=== PATIENT | female | born 2005 | race Caucasian/White ===

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

== ENCOUNTER 2023-05-21 16:51 | Emergency (ER) | payer OTHER, SELFPAY ==
--- OUTSIDE RECORDS SUMMARY | 2023-05-21 16:58 | XMS REPORT | Continuity of Care Document ---
:2005 Author Organization [facility] t Address [address] [place] [address] Care Team Providers Name Role Phone MADALYN EVANGELISTA Primary Care Physician Unavailable SEJAL REDD Attending Clinician Unavailable SEJAL REDD Attending Clinician Unavailable Hollis Arora MD Attending Clinician HOLLIS ARORA Attending Clinician Unavailable MADALYN EVANGELISTA Attending Clinician Unavailable LOUISE BENSON Attending Clinician Unavailable ASAEL CHEEMA Attending Clinician Unavailable Asael Cheema MD Attending Clinician Doctor Unassigned, Monette Attending Clinician Unavailable Louise Benson MD Attending Clinician JEVON MUELLER Attending Clinician Unavailable Jevon Mueller MD Attending Clinician BRANDI IRELAND Attending Clinician Unavailable SILVIA QUINN Attending Clinician Unavailable SILVIA QUINN Attending Clinician Unavailable Madalyn Le Attending Clinician Brandi Ireland MD Attending Clinician Lab, Ang - Db Attending Clinician Unavailable Roya Livingston MD Attending Clinician ROYA LIVINGSTON Attending Clinician Unavailable ROYA LIVINGSTON Admitting Clinician Unavailable BRANDI IRELAND Admitting Clinician Unavailable Payers Payer Name Policy Type Policy Number Effective Date Expiration Date Elvis agrawal DALTON [facility] [id number] 2022 STAR 00:00:00 Problems Condition Condition Condition Status Onset Resolution Last Treating Co mments Source Name Details Category Date Date Treatment Clinician Date Encounter Encounter Disease Active Uni vers for for 06 ity of surveill[place] ce of Medical contracept contracept Br anch priscilla pills priscilla pills ROSMERY ROSMERY Disease Active Univers positive positive 308 ity of 00:00: Medical Branch Anxiety Anxiety Disease Active Univers and and 308 [place] of depression depression [place] Lumbar Lumbar Disease Active Univers back pain back pain 2 ity of 00:00: [place] 00 Medical Branch Encounter Encounter Disease Active Uni vers to to 08-19 [place] establish [place] Syncope, Syncope, Disease Active 2021-06 Unive rs unspecifie unspecifie 0-24 it y of d syncope d [place]ope [place] type type 00 [place] Fatigue, Fatigue, Disease Active 2021-06 Unive rs unspecifie unspecifie 0-24 it y of d type d type 00:00: 00 Medical Branch No known No known Disease Unive rs active active ity of problems problems [facility] Allergies, Adverse Reactions, Alerts Allergy Allergy Status Severity Reaction(s) Onset Inactive Treating Comm ents Source Name Type Date Date Clinician Amoxicil Propensi Active Diarrhea Univ ers maksim ty to 03-18 ity of adverse 00:00: [place] reaction 00 Medical s Branch AMOXICIL DRUG Active Diarrhea Univer s MAKSIM INGREDI 9 ity of 00:00: 00 Medical Branch CITRUS Drug Active Hives Univers AND Class 2-27 ity of DERIVATI 00:00: [place] VES 00 Medical Branch [place] Propensi Active Rash Univers And ty to 2-27 ity of Derivati adverse 00:00: [place] ves reaction 00 Medical s Branch NO KNOWN Drug Active Univers ALLERGIE Class ity of S [facility] Social History Social Habit Start Date Stop Date Quantity Comments Source Gender identity Universit y of [facility] Sexual orientation Univer sity of [facility] Alcohol intake 2023-05-19 2023-05-19 Ex-drinker [facility] 00:00:00 00:00:00 (finding) [facility] Exposure to 2022-10-11 2022-10-21 Not sure [facility] SARS-CoV-2 (event) 00:00:00 15:08:00 [facility] History of Social 2022-08-28 2022-08-28 Univers ity of function 00:00:00 00:00:00 [facility] Tobacco use and 2022-08-19 2022-08-19 Smokeless Universit y of exposure 00:00:00 00:00:00 tobacco non-user [facility] dical [place] Alcohol Comment 2021-12-04 2021-12-04 social Universit y of 00:00:00 00:00:00 [facility] History SDAK 2020-08-22 2020-08-22 1 University o f Alcohol Frequency 00:00:00 00:00:00 [place] M edical Branch History SDOH 2020-08-22 2020-08-22 99 University o f Alcohol Std Drinks 00:00:00 00:00:00 [facility] History SDAK 2020-08-22 2020-08-22 1 University o f Alcohol Binge 00:00:00 00:00:00 [place] Medic al [place] Sex Assigned At [birth year] Universit y of 00:00:00 00:00:00 [facility] Smoking Status Start Date Stop Date Source Never smoked tobacco [facility] Medications Ordered Filled Start Stop Current Ordering Indication Dosage Frequency Signature Comments Components Source Medication Medication Date Date Medication? Clinician (SIG) Name Name cephALEXin 2022-06 Yes [id number] 500mg Take 1 Univers (KEFLEX) 1-27 capsule by ity o f 500 mg 00:00: mouth 4 [place] capsule 00 (four) Medical times Branch daily. neomycin-po Yes [id number] 3[drp] Place 3 Univers lymyxin-hyd 6-19 Drops in ity of rocortisone 00:00: right ear [place] 3.5-10,000- 00 4 (four) Medi juli 1 times Branch mg/mL-unit/ daily. mL-% otic susp neomycin-po 2023-0 Yes [id number] 3[drp] Place 3 Univers lymyxin-hyd 6-19 Drops in ity of rocortisone 00:00: right ear [place] 3.5-,000- 00 4 (four) Medi juli 1 times Branch mg/mL-unit/ daily. mL-% otic susp neomycin-po 2023-0 Yes [id number] 3[drp] Place 3 Univers lymyxin-hyd 6-19 Drops in ity of rocortisone 00:00: right ear [place] 3.5-,000- 00 4 (four) Medi juli 1 times Branch mg/mL-unit/ daily. mL-% otic susp neomycin-po 2023-0 Yes [id number] 3[drp] Place 3 Univers lymyxin-hyd 6-19 Drops in ity of rocortisone 00:00: right ear [place] 3.5-,000- 00 4 (four) Medi juli 1 times Branch mg/mL-unit/ daily. mL-% otic susp neomycin-po 2023-0 Yes [id number] 3[drp] Place 3 Univers lymyxin-hyd 6-19 Drops in ity of rocortisone 00:00: right ear [place] 3.5-- 00 4 (four) Medi juli 1 times Branch mg/mL-unit/ daily. mL-% otic susp neomycin-po 2023-0 Yes [id number] 3[drp] Place 3 Univers lymyxin-hyd 6-19 Drops in ity of rocortisone 00:00: right ear [place] 3.5-,000- 00 4 (four) Medi juli 1 times Branch mg/mL-unit/ daily. mL-% otic susp neomycin-po 2023-0 Yes [id number] 3[drp] Place 3 Univers lymyxin-hyd 6-19 Drops in ity of rocortisone 00:00: right ear [place] 3.5-,000- 00 4 (four) Medi juli 1 times Branch mg/mL-unit/ daily. mL-% otic susp neomycin-po 2023-0 Yes [id number] 3[drp] Place 3 Univers lymyxin-hyd 6-19 Drops in ity of rocortisone 00:00: right ear [place] 3.5-10,000- 00 4 (four) Medi juli 1 times Branch mg/mL-unit/ daily. mL-% otic susp neomycin-po 3-0 Yes [id number] 3[drp] Place 3 Univers lymyxin-hyd 6-19 Drops in ity of rocortisone 00:00: right [place] 3.5-10,000- 00 4 (four) Medi juli 1 times Branch mg/mL-unit/ daily. mL-% otic susp neomycin-po 3-0 Yes [id number] 3[drp] Place 3 Univers lymyxin-hyd 6-19 Drops in ity of rocortisone 00:00: right [place] 3.5-,000- 00 4 (four) Medi juli 1 times Branch mg/mL-unit/ daily. mL-% otic susp naproxen 2022-0 3- No [id number] 500mg Take 1 Univers 500 mg 6-19 06-30 tablet by ity of tablet 00:00: 04:59 mouth in [place] 00 :00 the Medical morning Branch and 1 tablet in the evening. Take with meals. Do all this for 10 days. levonorgest 3-0 Yes [id number] 1{tbl} Take 1 Univers rel-ethinyl 6-06 tablet by [place]y of estradiol 00:00: [place] 0.[place] mg-30 the Medical mcg () morning. Branch per tablet levonorgest 2023-0 Yes [id number] 1{tbl} Take 1 Univers rel-ethinyl 6-06 tablet by ity of estradiol 00:00: [place] 0.[place] mg-30 the Medical mcg () morning. Branch per tablet levonorgest 2023-0 Yes [id number] 1{tbl} Take 1 Univers rel-ethinyl 6-06 tablet by [place]y of estradiol 00:00: [place] 0.[place] mg-30 the Medical mcg () morning. Branch per tablet levonorgest 2023-0 Yes [id number] 1{tbl} Take 1 Univers rel-ethinyl 6-06 tablet by ity of estradiol 00:00: [place] 0.[place] mg-30 the Medical mcg () morning. Branch per tablet levonorgest 2023-0 Yes [id number] 1{tbl} Take 1 Univers rel-ethinyl 6-06 tablet by [place]y of estradiol 00:00: [place] 0.15 mg-30 the Medical mcg () morning. Branch per tablet levonorgest 3-0 Yes [id number] 1{tbl} Take 1 Univers rel-ethinyl 6-06 tablet by ity of estradiol 00:00: [place] 0.[place] mg-30 the Medical mcg () morning. Branch per tablet levonorgest 3-0 Yes [id number] 1{tbl} Take 1 Univers rel-ethinyl 6-06 tablet by ity of estradiol 00:00: [place] 0.15 mg- the Medical mcg () morning. Branch per tablet levonorgest 3-0 Yes [id number] 1{tbl} Take 1 Univers rel-ethinyl 6-06 tablet by ity of estradiol 00:00: [place] 0.15 mg- the Medical mcg () morning. Branch per tablet levonorgest 3-0 Yes [id number] 1{tbl} Take 1 Univers rel-ethinyl 6-06 tablet by ity of estradiol 00:00: [place] 0.15 mg- the Medical mcg () morning. Branch per tablet levonorgest 3-0 Yes [id number] 1{tbl} Take 1 Univers rel-ethinyl 6-06 tablet by ity of estradiol 00:00: [place] 0.15 mg- the Medical mcg () morning. Branch per tablet levonorgest 3-0 Yes [id number] 1{tbl} Take 1 Univers rel-ethinyl 6-06 tablet by ity of estradiol 00:00: [place] 0.[place] mg-30 the Medical mcg () morning. Branch per tablet levonorgest 2023-0 Yes [id number] 1{tbl} Take 1 Univers rel-ethinyl 6-06 tablet by ity of estradiol 00:00: [place] 0.[place] mg-30 00 the Medical mcg () morning. Branch per tablet levonorgest 2023-0 Yes [id number] 1{tbl} Take 1 Univers rel-ethinyl 6-06 tablet by ity of estradiol 00:00: [place] 0.[place] mg-30 00 the Medical mcg (91) morning. Branch per tablet levonorgest Yes [id number] 1{tbl} Take 1 Univers rel-ethinyl 6-06 tablet by ity of estradiol 00:00: [place] 0.[place] mg-30 00 the Medical mcg (91) morning. Branch per tablet levonorgest 2022- Yes [id number] 1{tbl} Take 1 Univers rel-ethinyl 3-09 tablet by ity of estradiol 00:00: [place] 0.[place] mg-30 00 the Medical mcg (91) morning. Branch per tablet levonorgest Yes [id number] 1{tbl} Take 1 Univers rel-ethinyl 3-09 tablet by ity of estradiol 00:00: [place] 0.[place] mg-30 00 the Medical mcg (91) morning. Branch per tablet levonorgest Yes [id number] 1{tbl} Take 1 Univers rel-ethinyl 3-09 tablet by ity of estradiol 00:00: [place] 0.[place] mg-30 00 the Medical mcg (91) morning. Branch per tablet levonorgest Yes [id number] 1{tbl} Take 1 Univers rel-ethinyl 3-09 tablet by ity of estradiol 00:00: [place] 0[place] mg-30 00 the Medical mcg (91) morning. Branch per tablet levonorgest 2022- No [id number] 1{tbl} Take 1 Univers rel-ethinyl 3-09 06-06 tablet by it y of estradiol 00:00: 00:00 mouth in [place] 0.15 mg-30 00 :00 the Medical mcg (91) morning. Branch per tablet levonorgest 2022- No [id number] 1{tbl} Take 1 Univers rel-ethinyl 3-09 06-06 tablet by it y of estradiol 00:00: 00:00 mouth in [place] 0.15 mg-30 00 :00 the Medical mcg (91) morning. Branch per tablet meclizine 32mg Take 32 mg U nivers 25 mg 8-08 02-19 by mouth 3 ity of tablet 09:54: 00:00 (three) [place] 01 :00 times Medical daily as Branch needed. meclizine 32mg Take 32 mg U nivers 25 mg 8-19 -19 by mouth 3 ity of tablet 09:54: 00:00 (three) [place] 01 :00 times Medical daily as Branch needed. levonorgest Yes [id number] 1{tbl} Take 1 Univers rel-ethinyl 8-19 tablet by ity of estradiol 00:00: [place] 0.[place] mg-30 00 the Medical mcg () morning. Branch per tablet levonorgest Yes [id number] 1{tbl} Take 1 Univers rel-ethinyl 8-19 tablet by ity of estradiol 00:00: [place] 0.[place] mg-30 00 the Medical mcg () morning. Branch per tablet levonorgest Yes [id number] 1{tbl} Take 1 Univers rel-ethinyl 8-19 tablet by ity of estradiol 00:00: [place] 0.[place] mg-30 00 the Medical mcg () morning. Branch per tablet levonorgest Yes [id number] 1{tbl} Take 1 Univers rel-ethinyl 8-19 tablet by ity of estradiol 00:00: [place] 0.[place] mg-30 00 the Medical mcg (91) morning. Branch per tablet levonorgest Yes [id number] 1{tbl} Take 1 Univers rel-ethinyl 8-19 tablet by ity of estradiol 00:00: [place] 0.[place] mg-30 00 the Medical mcg (91) morning. Branch per tablet levonorgest Yes [id number] 1{tbl} Take 1 Univers rel-ethinyl 8-19 tablet by ity of estradiol 00:00: [place] 0.[place] mg-30 00 the Medical mcg (91) morning. Branch per tablet levonorgest Yes [id number] 1{tbl} Take 1 Univers rel-ethinyl 8-19 tablet by ity of estradiol 00:00: [place] 0.[place] mg-30 00 the Medical mcg (91) morning. Branch per tablet levonorgest 2021-0 Yes [id number] 1{tbl} Take 1 Univers rel-ethinyl 8-19 tablet by ity of estradiol 00:00: [place] 0.[place] mg-30 00 the Medical mcg (91) morning. Branch per tablet levonorgest 2021-0 Yes [id number] 1{tbl} Take 1 Univers rel-ethinyl 8-19 tablet by ity of estradiol 00:00: [place] 0.[place] mg-30 00 the Medical mcg (91) morning. Branch per tablet levonorgest 2021-0 Yes [id number] 1{tbl} Take 1 Univers rel-ethinyl 8-19 tablet by ity of estradiol 00:00: [place] 0.[place] mg-30 00 the Medical mcg (91) morning. Branch per tablet levonorgest 2021-0 Yes [id number] 1{tbl} Take 1 Univers rel-ethinyl 8-19 tablet by ity of estradiol 00:00: [place] 0.[place] mg-30 00 the Medical mcg (91) morning. Branch per tablet levonorgest 2021-0 Yes [id number] 1{tbl} Take 1 Univers rel-ethinyl 8-19 tablet by ity of estradiol 00:00: [place] 0[place] mg-30 00 the Medical mcg (91) morning. Branch per tablet levonorgest 2021-0 Yes [id number] 1{tbl} Take 1 Univers rel-ethinyl 8-19 tablet by ity of estradiol 00:00: [place] 0.[place] mg-30 00 the Medical mcg (91) morning. Branch per tablet levonorgest 2021-0 Yes [id number] 1{tbl} Take 1 Univers rel-ethinyl 8-19 tablet by ity of estradiol 00:00: [place] 0[place] mg-30 00 the Medical mcg (91) morning. Branch per tablet levonorgest 2-0 Yes [id number] 1{tbl} Take 1 Univers rel-ethinyl 8-19 tablet by ity of estradiol 00:00: [place] 0.[place] mg-30 00 the Medical mcg () morning. Branch per tablet levonorgest Yes [id number] 1{tbl} Take 1 Univers rel-ethinyl 8-19 tablet by ity of estradiol 00:00: [place] 0.[place] mg-30 00 the Medical mcg () morning. Branch per tablet levonorgest Yes [id number] 1{tbl} Take 1 Univers rel-ethinyl 8-19 tablet by ity of estradiol 00:00: [place] 0.15 mg-30 00 the Medical mcg () morning. Branch per tablet levonorgest Yes [id number] 1{tbl} Take 1 Univers rel-ethinyl 8-19 tablet by ity of estradiol 00:00: [place] 0.15 mg-30 00 the Medical mcg () morning. Branch per tablet levonorgest Yes [id number] 1{tbl} Take 1 Univers rel-ethinyl 8-19 tablet by ity of estradiol 00:00: [place] 0.15 mg-30 00 the Medical mcg () morning. Branch per tablet levonorgest Yes [id number] 1{tbl} Take 1 Univers rel-ethinyl 8-19 tablet by ity of estradiol 00:00: [place] 0.15 mg-30 00 the Medical mcg () morning. Branch per tablet levonorgest 2022- No [id number] 1{tbl} Take 1 Univers rel-ethinyl 8-19 03-09 tablet by it y of estradiol 00:00: 00:00 mouth in [place] 0.15 mg-30 00 :00 the Medical mcg (91) morning. Branch per tablet desogestreL 2021- No [id number] 1{tbl} Take 1 Univers -ethinyl 6-14 08-19 tablet by ity o f estradioL 00:00: 00:00 mouth [place] (RECLIPSEN, 00 :00 daily. Medica l 28,) Branch 0.15-0.03 mg per tablet desogestreL 2021- No [id number] 1{tbl} Take 1 Univers -ethinyl 6-14 08-19 tablet by ity o f estradioL 00:00: 00:00 mouth [place] (RECLIPSEN, 00 :00 daily. Medica l 28,) Branch 0.15-0.03 mg per tablet QUEtiapine 2021- No Univer s 300 mg 08-01 ity of tablet 00:00: 00:00 [place] 00 :00 Medical Branch QUEtiapine 2021- No Univer s 300 mg 08-01 ity of tablet 00:00: 00:00 [place] 00 :00 Medical Branch DENTA 5000 2021- No Univer s PLUS 1.1 % 07-28 ity of Crea 00:00: 00:00 [place] 00 :00 Medical Branch DENTA 5000 2021- No Univer s PLUS 1.1 % 07-28 ity of Crea 00:00: 00:00 [place] 00 :00 Medical Branch venlafaxine 2021- No Unive rs XR 75 mg 24 07-18 ity of hr capsule 00:00: 00:00 [place] 00 :00 Medical Branch venlafaxine 2021- No Unive rs XR 75 mg 24 07-18 ity of hr capsule 00:00: 00:00 [place] 00 :00 [facility] Immunizations Ordered Filled Date Status Comments Source Immunization Name Immunization Name [facility] 2022-11-26 Completed University of 00:00:00 [facility] HPV9 2022-11-26 Completed University of 00:00:00 [facility] HPV9 2022-11-26 Completed University of 00:00:00 [facility] HPV9 2022-11-26 Completed University of 00:00:00 [facility] HPV9 2022-11-26 Completed University of 00:00:00 [facility] HPV9 2022-11-26 Completed University of 00:00:00 [facility] HPV9 2022-11-26 Completed University of 00:00:00 [facility] HPV9 2022-11-26 Completed University of 00:00:00 [facility] HPV9 Unknown Completed [facility] HPV9 Unknown Completed [facility] HPV9 Unknown Completed [facility] HPV9 Unknown Completed [facility] HPV9 Unknown Completed [facility] HPV9 Unknown Completed [facility] Vital Signs Vital Name Observation Time Observation Value Comments Source Systolic blood 2023-05-20 05:49:00 99 mm[Hg] Univer sity of pressure [facility] Diastolic blood 2023-05-20 05:49:00 59 mm[Hg] Unive rsity of pressure [facility] Heart rate 2023-05-20 05:49:00 79 /min Universi ty of [facility] Respiratory rate 2023-05-20 05:49:00 16 /min Univ ersity of [facility] Oxygen saturation in 2023-05-20 05:49:00 100 /min University of Arterial blood by [place] [employer] Pulse oximetry Branch Body temperature 2023-05-20 02:52:00 37.11 Ysabel Univ ersity of [facility] Body height 2023-05-20 02:52:00 167.6 cm Universi ty of [facility] Body weight 2023-05-20 02:52:00 57.607 kg Universi ty of [place] [facility] BMI 2023-05-20 02:52:00 20.50 kg/m2 Universi ty of [facility] [place] [facility] Branch Systolic blood 2023-04-11 14:52:00 101 mm[Hg] Univer sity of pressure [facility] Branch Diastolic blood 2023-04-11 14:52:00 68 mm[Hg] Unive rsity of pressure [facility] Heart rate 2023-04-11 14:52:00 56 /min Universi ty of [facility] Body temperature 2023-04-11 14:52:00 36.56 Ysabel Univ ersity of [facility] Respiratory rate 2023-04-11 14:52:00 18 /min Univ ersity of [facility] Body height 2023-04-11 14:52:00 165.1 cm Universi ty of [place] [facility] Body weight 2023-04-11 14:52:00 59.194 kg Universi ty of [place] [facility] BMI 2023-04-11 14:52:00 21.72 kg/m2 Universi ty of [facility] Oxygen saturation in 2023-04-11 14:52:00 98 /min r/a University of Arterial blood by [place] Pulse oximetry Branch Body height 2023-03-18 14:45:00 165.1 cm Universi ty of [place] [facility] Body weight 2023-03-18 14:45:00 60.357 kg Universi ty of [place] [facility] BMI 2023-03-18 14:45:00 22.14 kg/m2 Universi ty of [facility] [place] [facility] Branch Systolic blood 2023-01-03 20:16:00 103 mm[Hg] Univer sity of pressure [place] [facility] [place] Diastolic blood 2023-01-03 20:16:00 64 mm[Hg] Unive rsity of pressure [facility] Heart rate 2023-01-03 20:16:00 98 /min Universi ty of [place] [facility] [place] Body height 2023-01-03 20:10:00 165.1 cm Universi ty of [place] [facility] [place] Body weight 2023-01-03 20:10:00 58.106 kg Universi ty of [place] [facility] [place] BMI 2023-01-03 20:10:00 21.32 kg/m2 Universi ty of [facility] Systolic blood 2022-12-10 00:43:00 123 mm[Hg] Univer sity of [facility] Diastolic blood 2022-12-10 00:43:00 81 mm[Hg] Unive rsity of [facility] Heart rate 2022-12-10 00:43:00 71 /min Universi ty of [place] [facility] [place] Body temperature 2022-12-10 00:43:00 37.11 Ysabel Univ ersity of [facility] Respiratory rate 2022-12-10 00:43:00 18 /min Univ ersity of [facility] Body height 2022-12-10 00:43:00 165.1 cm Universi ty of [place] [facility] [place] Body weight 2022-12-10 00:43:00 57.607 kg Universi ty of [place] [facility] BMI 2022-12-10 00:43:00 21.13 kg/m2 Universi ty of [facility] Oxygen saturation in 2022-12-10 00:43:00 100 /min [facility] Arterial blood by [facility] Pulse oximetry Branch Systolic blood 2022-11-26 20:30:00 93 mm[Hg] Univer sity of pressure [facility] Diastolic blood 2022-11-26 20:30:00 43 mm[Hg] Unive rsity of pressure [facility] Heart rate 2022-11-26 20:30:00 64 /min Universi ty of [place] [facility] [place] Body temperature 2022-11-26 20:30:00 36.78 Ysabel Univ ersity of [facility] Respiratory rate 2022-11-26 20:30:00 18 /min Univ ersity of [place] [facility] [place] Body height 2022-11-26 20:30:00 163 cm Universi ty of [place] [facility] [place] Body weight 2022-11-26 20:30:00 57.879 kg Universi ty of [place] [facility] BMI 2022-11-26 20:30:00 21.78 kg/m2 Universi ty of [facility] Systolic blood 2022-10-21 20:12:00 122 mm[Hg] Univer sity of pressure [facility] Diastolic blood 2022-10-21 20:12:00 63 mm[Hg] Unive rsity of pressure [facility] Body height 2022-10-21 20:12:00 167.6 cm Universi ty of [place] [facility] [place] Body weight 2022-10-21 20:12:00 57.108 kg Universi ty of [place] [facility] BMI 2022-10-21 20:12:00 20.32 kg/m2 Universi ty of [facility] [place] [facility] Branch Systolic blood 2022-08-28 16:18:00 115 mm[Hg] Univer sity of pressure [facility] Diastolic blood 2022-08-28 16:18:00 60 mm[Hg] Unive rsity of pressure [facility] Heart rate 2022-08-28 16:18:00 79 /min Universi ty of [place] [facility] [place] Body temperature 2022-08-28 16:18:00 37.22 Ysabel Univ ersity of [facility] Body height 2022-08-28 16:18:00 167.6 cm Universi ty of [place] [facility] Body weight 2022-08-28 16:18:00 56.7 kg Universi ty of [place] [facility] BMI 2022-08-28 16:18:00 20.18 kg/m2 Universi ty of [facility] Body mass index 2022-08-28 16:18:00 31.77 % Unive rsity of (BMI) [Percentile] [facility] ical Per age and sex Branch Oxygen saturation in 2022-08-28 16:18:00 99 /min University of Arterial blood by [facility] Pulse oximetry Branch Systolic blood 2022-08-19 15:06:00 108 mm[Hg] Univer sity of pressure [facility] Diastolic blood 2022-08-19 15:06:00 70 mm[Hg] Unive rsity of pressure [facility] Heart rate 2022-08-19 15:06:00 83 /min Universi ty of [facility] Body temperature 2022-08-19 15:06:00 37.17 Ysabel Univ ersity of [facility] Body height 2022-08-19 15:06:00 167.6 cm Universi ty of [facility] Body weight 2022-08-19 15:06:00 58.015 kg Universi ty of [facility] BMI 2022-08-19 15:06:00 20.64 kg/m2 Universi ty [facility] Body mass index 2022-08-19 15:06:00 38.20 % Unive rsity of (BMI) [Percentile] [place] [facility] ical Per age and sex Branch Oxygen saturation in 2022-08-19 15:06:00 98 /min [facility] Arterial blood by [facility] Pulse oximetry Branch Systolic blood 2022-02-08 14:12:00 101 mm[Hg] Univer sity of pressure [facility] Diastolic blood 2022-02-08 14:12:00 67 mm[Hg] Unive rsity of pressure [facility] Heart rate 2022-02-08 14:12:00 81 /min Universi ty [facility] Body temperature 2022-02-08 14:12:00 36.78 Ysabel Univ ersity of [facility] Body height 2022-02-08 14:12:00 167.6 cm Universi ty [facility] Body weight 2022-02-08 14:12:00 59.512 kg Universi ty [facility] BMI 2022-02-08 14:12:00 21.18 kg/m2 Universi ty [facility] Body mass index 2022-02-08 14:12:00 47.21 % Unive rsity of (BMI) [Percentile] [place] Med ical Per age and sex Branch Procedures Procedure Date / Time Performing Clinician Source Performed TROPONIN I 2023-05-20 04:01:00 Hollis Arora [facility] COMP. METABOLIC PANEL 2023-05-20 04:01:00 Hollis Arora [facility] ([id number]) Medical Branch CBC WITH DIFF 2023-05-20 04:01:00 Hollis Arora [facility] URINALYSIS 2023-05-20 04:01:00 Hollis Arora [facility] RAPID STREP SCREEN FOR 2023-05-20 04:01:00 Hollis Arora [facility] GROUP A [facility] RAPID INFLUENZA A/B 2023-05-20 04:01:00 Hollis Arora [facility] POCT TEST 2023-05-20 04:01:00 Hollis [facility]ora [facility] CONSENT/REFUSAL FOR 2023-05-20 02:29:15 Doctor Jimmy, [facility] STATEMENT OF PATIENT 2023-04-11 05:01:00 Doctor Jimmy, [facility] FINANCIAL RESPONSIBILITY [facility] CONSENT/REFUSAL FOR 2023-01-03 20:03:41 Doctor Jimmy, [facility] DIAGNOSIS AND TREATMENT [facility] ASSIGNMENT OF BENEFITS 2022-12-10 01:08:19 Doctor Jimmy, [facility] CONSENT/REFUSAL FOR 2022-12-10 00:35:59 [facility] DI[facility] GARDASIL 9 (HPV 9V) 2022-11-26 20:55:19 Horace [facility] VACCINE Sejal [facility] CONSENT FOR CONTRACEPTION 2022-11-26 05:01:00 Doctor Jimmy, [facility] [place] [facility] POCT TEST 2022-08-19 16:30:00 Madalyn Evangelista [facility] CORTISOL AM 2022-03-25 15:37:00 Silvia Quinn [facility] FREE T4 2022-03-25 15:37:00 Silvia Quinn [facility] THYROID STIMULATING 2022-03-25 15:37:00 Silvia Quinn [facility] HORMONE [facility] Branch COMP. METABOLIC PANEL 2022-03-25 15:37:00 Silvia Quinn [facility] ([id number]) Medical Branch CBC WITH DIFF 2022-03-25 15:37:00 [facility] GLYCOSYLATED HEMOGLOBIN 2022-03-25 15:37:00 Silvia Quinn [facility] (A1C) [facility] FREE T3 2022-03-25 15:37:00 Silvia Quinn [facility] US PELVIS COMPLETE WITH 2022-02-20 19:31:10 Brandi Ireland [facility] Start End Encounter Admission Attending Care Care Encounter Source Date/Time Date/Time Type Type Clinicians Facility Department ID 2023-05-19 2023-05-19 Emergency [facility] [id number] Univers 20:55:00 23:51:00 Hollis GUTIÉRREZ 350.1.13.10 ity [facility] [place].2.[place].2.[place] [phone] [place] [address] Branch 2023-05-19 2023-05-19 Emergency [facility] [id number] Univers 20:55:00 23:51:00 HOLLIS y [facility] 2023-04-23 2023-04-23 Outpatient R JEAN CARLOS [facility] [id number] Univers 13:30:00 13:30:00 MADALYN y [facility] 2023-04-11 2023-04-11 Outpatient R [facility] [id number] Univers 12:15:00 12:15:00 ity [facility] 2023-04-11 2023-04-11 Outpatient R DENI [facility] [id number] Univers 10:00:00 11:23:53 ASAEL contrerasy [facility] 2023-04-11 2023-04-11 [facility] 1.2.840.114 [id number] Univers 10:00:00 11:23:53 Visit Asael SMITH 350.1.13.10 it y of [facility] 4.2.7.2.686 [place] [phone] [address] 2023-04-11 2023-04-11 Orders Doctor MARILIN 1.2.840.114 [id number] Univers 00:00:00 00:00:00 Only Unassigned, FRANCO 350.1.13.10 ity of [place] [facility] 4.2.7.2.686 Horacio as [phone] [address] 2023-03-18 2023-03-18 Office [facility] [id number] Univers 10:00:00 10:15:00 Visit Louise GUARDADO 350.1.13.10 i ty of [facility] 4[place].2.[place] [id number] [address] 2023-03-18 2023-03-18 [facility] [id number] Univers 10:00:00 10:00:00 LOUISE torres [facility] 2023-01-03 2023-01-03 Office [facility] [id number] Univers 15:45:00 16:00:00 Visit Louise GUARDADO 350.1.13.10 i ty of [facility] [place].2.[place] [id number] [address] 2023-01-03 2023-01-03 Out[facility] [id number] Univers 15:45:00 15:45:00 LOUISE torres [facility] 2023-01-03 2023-01-03 Orders Doctor GASTON 1.2.840.114 [id number] Univers 00:00:00 00:00:00 Only Unassigned, FRANCO 350.1.13.10 ity of [place] [facility] 4.2.7.2.686 Horacio as [phone] [address] 2022-12-09 2022-12-09 Emergency [facility] [id number] Univers 19:46:00 20:22:00 JEVON benrosalind [facility] 2022-12-09 2022-12-09 Emergency [facility] 1.2.540.488 [id number] Univers 19:46:00 20:22:00 Jevon GUTIÉRREZ 350.1.13.10 i ty of [place] 4.2.7.2.[place] [phone] [facility] [address] [place] 2022-12-09 2022-12-09 Orders Doctor MARILIN 1.2.840.114 [id number] Univers 00:00:00 00:00:00 Only Unassigned, FRANCO 350.1.13.10 ity of [place] [facility] 4.2.7.2.686 Horacio as [id number] [address] 2022-11-26 2022-11-26 Outpatient R HORACE SEJAL [facility] [id number] Univers 15:30:00 15:58:32 HORACE [facility] 2022-11-26 2022-11-26 Office [facility] 1.2.840.114 [id number] Univers 15:30:00 15:58:32 Visit s, Sejal [place] 350.1.13.10 ity [facility] 4.2.7.2.[place] [phone] La dical [facility] [address] [facility] 2022-11-26 2022-11-26 Orders Doctor MARILIN 1.2.840.114 [id number] Univers 00:00:00 00:00:00 Only Unassigned, FRANCO 350.1.13.10 ity of [place] [facility] 4.2.7.2.686 Horacio as [phone] [address] 2022-10-21 2022-10-21 Outpatient R SILVIA QUINN [facility] [id number] Univers 15:30:00 15:48:47 SILVIA [facility]INN [facility] 2022-10-21 2022-10-21 Office Sakshi [facility] 1.2.840.114 [id number] Univers 15:30:00 15:48:47 Visit HEALTH 350.1.13.10 it y of [place] 4.2.7.2.686 Horacio as LIAN?BLEA [phone] La dical KNEY [address] MEDICAL OFFICE BUILDING 2022-09-01 2022-09-01 Patient Doctor MARILIN 1.2.840.114 [id number] Univers 00:00:00 00:00:00 Secure Msg Unassigned, FRANCO 350.1.13.10 ity of [facility] 4.2.7.2.686 Horacio as [phone] [address] 2022-08-28 2022-08-28 Outpatient R JEAN CARLOS [facility] [id number] Univers 10:30:00 10:53:44 MADALYN torres [facility] 2022-08-28 2022-08-28 Office [facility] 1.2.840.114 [id number] Univers 10:30:00 10:53:44 Visit Madalyn [facility] 350.1.13.10 it y of [facility] 4.2.7.2.686 Horacio as LIAN?BLEA [phone] La dicbonifacio [facility] [address] [facility] OFFICE [facility] 2022-08-28 2022-08-28 Ref[facility] 1.2.840.114 [id number] Univers 00:00:00 00:00:00 Brandi Mcallister [facility] 350.1.13.10 ity of [place] 4[place].2.[place] [phone] [facility] 134 [facility] 2022-08-19 2022-08-19 Outpatient R SAIDAErik [facility] [id number] Univers 10:00:00 10:38:59 MADALYN torres [facility] 2022-08-19 2022-08-19 Immigration Lawyer Lab, Ang - Db [facility] 1.2.840.1 14 [id number] Univers 10:00:00 10:15:00 Visit Jean Carlos Madalyn [facility] 350.1.13.10 ity of [facility] 4.2.7.2.686 Horacio as LIAN?BLEA [phone] La dical HENRIQUE [address] [facility] OFFICE BUILDING 2022-08-19 2022-08-19 Office Jean [facility] 1.2.840.114 [id number] Univers 09:00:00 09:30:00 Visit Madalyn PALACIOS 350.1.13.10 it y of [facility] 4.2.7.2.686 Horacio as LIAN?BLEA [phone] La dical EY [address] MEDICAL OFFICE BUILDING 2022-06-26 2022-06-26 Outpatient R SILVIA QUINN [facility] [id number] Univers 11:30:00 11:30:00 SILVIA QUINN itrosalind [facility] 2022-04-23 2022-04-23 Telephone Silvia Quinn [facility] [id number] Univers 00:00:00 00:00:00 PRIMARY 350.1.13.10 it y of [place] [phone] [facility] [address] [place] 2022-04-12 2022-04-12 [facility] CHELSEY [place] 1.2.840.114 [id number] Univers 16:40:00 23:59:00 Encounter Roya Hilario 350.1.13.10 ity of [facility] 4.2.7.2.686 Hor[place] as [phone] [facility] [address] [place] 2022-04-12 2022-04-12 [facility] [id number] Univers 00:00:00 23:59:00 ROYA melissa [facility] 2022-04-11 2022-04-11 [facility] 1.2.840.114 [id number] Univers 14:13:00 23:59:00 Encounter Roya Hilario 350.1.13.10 ity [facility] 4.2.7.2.686 [place] as [phone] [facility] [address] [place] 2022-04-11 2022-04-11 Outpatient [facility] [id number] Univers 00:00:00 23:59:00 ROYA [facility] 2022-04-08 2022-04-08 Immigration Lawyer Lab, Ang - Db [facility] 1.2.840.1 14 [id number] Univers 09:45:00 11:28:30 Visit Silvia Quinn [facility] 350.1.13.10 it y of [place] 4.2.7.2.686 Horacio as LIAN?BLEA [phone] La dical K[place] [address] [place] MEDICAL OFFICE [facility] 2022-04-08 2022-04-08 Outpatient R SILVIA QUINN [facility] [id number] Univers 09:45:00 09:45:00 SILVIA QUINN [facility] 2022-03-27 2022-03-27 Patient Silvia Quinn [facility] 1.2.840.114 [id number] Univers 00:00:00 00:00:00 Secure [facility] HEALTH 350.1.13.10 ity of [place] 4.2.7.2.686 Horacio as LIAN?BLEA [phone] La dicbonifacio DUENAS [address] [facility] OFFICE [facility] 2022-03-25 2022-03-25 Immigration Lawyer Lab, [facility] 1.2.840.1 14 [id number] Univers 08:15:00 11:12:21 Visit Silvia Quinn HEALTH 350.1.13.10 it y of [place] 4.2.7.2.686 Horacio as LIAN?BLEA [phone] La sarah DUENAS [address] [facility] OFFICE [facility] 2022-03-25 2022-03-25 Outpatient R SILVIA QUINN [facility] [id number] Univers 09:30:00 10:11:54 SILVIA QUINN [facility] 2022-03-25 2022-03-25 Office Sakshi [facility] 1.2.840.114 [id number] Univers 09:30:00 10:11:54 Visit HEALTH 350.1.13.10 it y of [place] 4.2.7.2.686 Horacio as LIAN?BLEA [phone] La sarah DUENAS [address] [facility] OFFICE [facility] 2022-03-25 2022-03-25 Telephone Silvia Quinn [facility] [id number] Univers 00:00:00 00:00:00 HEALTH 350.1.13.10 it y of [place] 4.2.7.2.686 Horacio as LIAN?BLEA [id number] La dicbonifacio DUENAS [address] [facility] OFFICE [facility] 2022-02-26 2022-02-26 Telephone Shu [facility] [id number] Univers 00:00:00 00:00:00 Brandi Mcallister [place] 350.1.13.10 ity of [place].7.2.[place] [phone] La dic[address] 2022-02-20 2022-02-20 Outpatient R ADUM, [facility] [id number] Univers 13:52:15 23:59:00 BRANDI ity of [facility] 2022-02-20 2022-02-20 Hospital Adum, [facility] 1.2.840.114 [id number] Univers 13:52:15 23:59:00 Encounter Brandi Mcallister [place] 350.1.13.10 ity of [facility] 4.2.7.2.[place] [phone] [address] 2022-02-08 2022-02-08 Office Adum, [facility] 1.2.840.114 [id number] Univers 09:15:00 09:58:12 Visit Brandi DONOVANTON 350.1.13.10 ity of [facility] 4.2.7.2.[place] [phone] La dic[address] 2022-02-08 2022-02-08 Outpatient R ADUM, [facility] [id number] Univers 09:15:00 09:58:12 BRANDI ity [facility] 2022-02-08 2022-02-08 Outpatient R ADUM, [facility] [id number] Univers 09:15:00 09:15:00 BRANDI ity [facility] 2022-02-07 2022-02-07 Telephone Ad, [facility] 1.2.162.755 [id number] Univers 00:00:00 00:00:00 Brandi DONOVANTON 350.1.13.10 ity of [place] 4[place]2.7.2.[place] [phone] La dic[address] 2021-12-04 2021-12-04 Outpatient R ADUM, [facility] [id number] Univers 15:30:00 16:53:18 BRANDI ity [facility] 2021-12-04 2021-12-04 Office Adum, [facility] 1.2.840.114 [id number] Univers 15:30:00 16:53:18 Visit Brandi DONOVANTON 350.1.13.10 ity of [facility] 4.2.7.2.[place] [phone] La dical NAL [address] [place] [address] 2021-12-04 2021-12-04 Orders Doctor MARILIN 1.2.840.114 [id number] Univers 00:00:00 00:00:00 Only Unassigned, FRANCO 350.1.13.10 ity of [place] [facility] 4.2.7.2.686 Horacio as [id number] [address] 2021-11-16 2021-11-16 [facility] 1.2.840.114 [id number] Univers 00:00:00 00:00:00 Brandi GUTIÉRREZ 350.1.13.10 ity of [facility] 4.2.7.2.[place] [phone] La dic[address] 2021-11-07 2021-11-07 Orders Doctor MARILIN 1.2.840.114 [id number] Univers 00:00:00 00:00:00 Only Unassigned, FRANCO 350.1.13.10 ity of [place] [facility] 4.2.7.2.686 Horacio as [phone] [address] 2021-02-27 2021-02-27 [facility] 1.2.840.114 [id number] Univers 13:54:27 15:02:19 Visit Brandi Gutiérrez 350.1.13.10 ity of [place].2.[place] [phone] [address] 2021-02-27 2021-02-27 Outpatient [facility] [id number] Univers 14:00:00 14:00:00 BRANDI ity of [facility] 2021-02-27 2021-02-27 Letter [facility] 1.2.840.114 [id number] Univers 00:00:00 00:00:00 (Out) Brandi Gutiérrez 350.1.13.10 ity of [place] 4[place].7.2.[place] [phone] La dic[address] 2021-02-27 2021-02-27 Letter [facility] 1.2.840.114 [id number] Univers 00:00:00 00:00:00 (Out) Brandi Gutiérrez 350.1.13.10 ity of [place].7.2.[place] [phone] La dical nal [address] [place] [address] 2020-08-23 2020-08-23 Case [facility] 1.2.840.114 [id number] Univers 00:00:00 00:00:00 Management Brandi Gutiérrez 350.1.13.10 ity of [place] 4[place].7.2.[place] [phone] La dical nal [address] [place] [address] 2020-08-22 2020-08-22 Office [facility] 1.2.840.114 [id number] Univers 15:10:24 16:42:12 Visit Brandi Gutiérrez 350.1.13.10 ity of [place] 4[place]2.[place].2.[place] [phone] La dical nal [address] [place] [address] 2020-08-22 2020-08-22 Outpatient R [facility] [id number] Univers 15:00:00 15:00:00 BRANDI itrosalind of [facility] 2020-08-22 2020-08-22 Orders Doctor MARILIN 1.2.840.114 [id number] Univers 00:00:00 00:00:00 Only Unassigned, FRANCO 350.1.13.10 ity of [place] [facility] 4.2.7.2.686 Horacio as [phone] [address] Results Test Description Test Time Test Comments Results Result Comments Source TROPONIN I 2023-05-20 04:53:20 Test Item Value Reference Range Interpretation Comme nts TROPONIN I (test code = 2190442066) 0.003 ng/mL <=0.034 BENOIT (test code = BENOIT) Reference (Normal) Range (defined by the 99th percentile reference limit): <= 0.034 ng/mL Note: Cardiac troponin begins to rise 3-4 hours after the onset of ischemia. Repeat in 4-6 hours if the sample was drawn within 3-4 hours of the onset of the symptom and found normal. Diagnosis of myocardial injury is made with acute changes in cTn concentrations with at least one serial sample above the 99th percentile upper reference limit (URL), taken together with the patient's clinical presentation. Biotin has been reported to cause a negative bias, interpret results relative to patient's use of biotin. Lab Interpretation (test code = Normal 44454-1) [facility]. METABOLIC PANEL ([id number])2023-05-20 04:35:54 Test Item Value Reference Range Interpretation Comments NA (test code = 139 mmol/L 135-145 6960930289) K (test code = 4.3 mmol/L 3.5-5.0 1706239898) CL (test code = 106 mmol/L 98-108 4455169941) CO2 TOTAL (test code = 28 mmol/L 23-31 7064871722) AGAP (test code = 5 2-16 4686016644) BUN (test code = 11 mg/dL 7-23 3051509480) GLUCOSE (test code = 91 mg/dL 70-110 3586582508) CREATININE (test code 0.71 mg/dL 0.50-1.04 = 2771081138) TOTAL BILI (test code 0.2 mg/dL 0.1-1.1 = 7276770587) CALCIUM (test code = 9.5 mg/dL 8.6-10.6 4954617601) T PROTEIN (test code = 7.8 g/dL 6.3-8.2 4369555297) ALBUMIN (test code = 4.2 g/dL 3.5-5.0 4735367466) ALK PHOS (test code = 54 U/L 34-122 0528692077) ALTv (test code = 12 U/L 5-35 1742-6) AST(SGOT) (test code = 20 U/L 13-40 8775864399) eGFR (test code = 125.8 mL/min/1.73m2 CKD-EPI e GFR (2020). 74839-8) Assuming creati nine has been stable day-to-day for at least three mon ths, the eGFR indica rocio Category G1 (>= 90 mL/min/1.73 m2) [facility] WITH [id number] 04:26:58 Test Item Value Reference Range Interpretation Comments WBC (test code = 6.44 See_Comment [Automated message] 9790-2) The system Instant [employer] generated this result transmitted ref erence range: 4.30 - 1 1.10 10*3/?L. The re ference range was not u sed to interpret this result as normal/abnor mal. RBC (test code = 4.58 See_Comment [Automated message] 939-8) The system [employer] generated this result transmitted ref erence range: 3.93 - 5 .25 10*6/?L. The re ference range was not u sed to interpret this result as normal/abnor mal. HGB (test code = 13.4 g/dL 11.6-15.0 718-7) HCT (test code = 41.5 % 35.7-45.2 4544-3) MCV (test code = 90.6 fL 80.6-95.5 787-2) MCH (test code = 29.3 pg 25.9-32.8 785-6) MCHC (test code = 32.3 g/dL 31.6-35.1 786-4) RDW-SD (test code 41.4 fL 39.0-49.9 = 14467-5) RDW-CV (test code 12.5 % 12.0-15.5 = 788-0) PLT (test code = 244 See_Comment [Automated message] 997-3) The system [employer] generated this result transmitted ref erence range: 166 - 35 8 10*3/?L. The re ference range was not u sed to interpret this result as normal/abnor mal. MPV (test code = 11.6 fL 9.5-12.9 17709-8) NRBC/100 WBC (test 0.0 See_Comment [Automat ed message] code = 3925913331) [employer] which generated this result transmitted ref erence range: 0.0 - 10 .0 /100 WBCs. The refer ence range was not u sed to interpret this result as normal/abnor mal. NRBC x10^3 (test See_Comment [Automated message] code = 7500193406) The syste m which generated this result transmitted ref erence range: 10*3/?L. The reference range was not used to interpr et this result as normal/abnormal . GRAN MAT (NEUT) % 46.1 % (test code = 770-8) IMM GRAN % (test 0.20 % code = 5437543674) LYMPH % (test code 43.3 % = 736-9) MONO % (test code 8.7 % = 5905-5) EOS % (test code = 1.4 % 713-8) BASO % (test code 0.3 % = 706-2) GRAN MAT 2.97 10*3/uL 1.88-7.09 x10^3(ANC) (test code = 6112930640) IMM GRAN x10^3 0.00-0.06 (test code = 8967022496) LYMPH x10^3 (test 2.79 10*3/uL 1.32-3.29 code = 731-0) MONO x10^3 (test 0.56 10*3/uL 0.33-0.92 code = 742-7) EOS x10^3 (test 0.09 10*3/uL 0.03-0.39 code = 711-2) BASO x10^3 (test 0.01-0.07 code = 704-7) [facility] [id number] 04:01:00 Test Item Value Reference Range Interpretation Comments POCT PREG (test code = 1605) Negative On board controls acceptable with C Yes Line (test code = 3574) Lab Interpretation (test code = Normal 82854-7) [facility] [id number] 16:30:00 Test Item Value Reference Range Interpretation Comments POCT PREG (test code = 1605) Negative On board controls acceptable with C Yes Line (test code = 3574) POCT PREG LOT # (test code = 3575) POCT PREG TEST DATE (test code = 3576) Lab Interpretation (test code = Normal 66542-1) [facility] [id number] 16:30:00 Test Item Value Reference Range Interpretation Comments POCT PREG (test code = 1605) Negative On board controls acceptable with C Yes Line (test code = 3574) POCT PREG LOT # (test code = 3575) POCT PREG TEST DATE (test code = 3576) Lab Interpretation (test code = Normal 02192-5) [facility] [id number] 20:44:10 Test Item Value Reference Range Interpretation Comments JUSTIN AM (test code = 30.5 ug/dL 4.5-23 H 4994442059) BENOIT (test code = BENOIT) Biotin has been reported to cause a positive bias, interpret results relative to patient's use of biotin. Lab Interpretation (test Abnormal code = 48845-2) [facility] ST[facility] [id number] 19:51:18 Test Item Value Reference Range Interpretation Comments TSH (test code = See_Comment [Automated message] 4712017048) The system Instant Information generated this result transmitted ref erence range: 0.45 - 4 .70 mIU/L. The refe rence range was not u sed to interpret this result as normal/abnor mal. Lab Interpretation (test Normal code = 48609-1) [facility] [id number] 19:37:52 Test Item Value Reference Range Interpretation Comments FREE T4 (test code = See_Comment [Autom ated message] 4132839540) The system Instant Information generated this result transmitted ref erence range: 0.78 - 2 .20 ng/dL:. The ref erence range was not u sed to interpret this result as normal/abnor mal. Lab Interpretation (test Normal code = 28499-7) [facility] [id number] 19:37:32 Test Item Value Reference Range Interpretation Comments FREE T3 (test code = 6568767521) 3.75 pg/mL 2.77-5.27 Lab Interpretation (test code = Normal 05524-1) [facility]YCOS[facility] HEMOGLOBIN (A1C)2022-03-25 19:36:51 Test Item Value Reference Range Interpretation Comments HGB A1C (test code = 4.6 % 4-5.7 4548-4) BENOIT (test code = BENOIT) Reference RangesNormal: <5.7%Prediabetes: 5.7 - 6.4%Diabetes: > 6.5% Lab Interpretation (test Normal code = 12188-8) [facility] METABOLIC PANEL (23384)2022-03-25 19:17:04 Test Item Value Reference Range Interpretation Comments NA (test code = 140 mmol/L 135-145 6734426339) K (test code = 4.2 mmol/L 3.5-5 8571119090) CL (test code = 106 mmol/L 98-108 6737687965) CO2 TOTAL (test code 25 mmol/L 23-31 = 0692593621) AGAP (test code = 2-16 8325172074) BUN (test code = 7 mg/dL 7-23 3730387441) GLUCOSE (test code = 80 mg/dL 70-110 6129856392) CREATININE (test code 0.75 mg/dL 0.5-1.04 = 9017161193) TOTAL BILI (test code 0.5 mg/dL 0.1-1.1 = 8234409558) CALCIUM (test code = 9.8 mg/dL 8.6-10.6 7420297823) T PROTEIN (test code 7.0 g/dL 6.3-8.2 = 6174245575) ALBUMIN (test code = 4.0 g/dL 3.5-5 8705851312) ALK PHOS (test code = 61 U/L 34-122 7829254903) ALTv (test code = 11 U/L 5-35 1742-6) AST(SGOT) (test code 16 U/L 13-40 = 3873068848) eGFR (test code = mL/min/1.73m2 5875666213) BENOIT (test code = BENOIT) Association of Glomerular Filtration Rate (GFR) and Staging of Kidney Disease* + + +- +| GFR (mL/min/1.73 m2) ?| With Kidney Damage ?| ?Without Kidney Damage+ ------+ ----+ ------+| ?>90 ?| ?Stage one ?| ? Normal ?+ -+ + -+| ?60-89 ?| ?Stage two ?| ? Decreased GFR ? + + +- +| ?30-59 ?| ?Stage three ?| ? Stage three ? + + +- +| ?15-29 ?| ?Stage four ? | ? Stage four ?+ -+ + -+| ?<15 (or dialysis) ? ?| ?Stage five ? | ? Stage five ?+ -+ + -+ *Each stage assumes the associated GFR level has been in effect for at least three months. ?Stages 1 to 5, with or without kidney disease, indicate chronic kidney disease. Notes: Determination of stages one and two (with eGFR >59mL/min/1.73 m2) requires estimation of kidney damage for at least three months as defined by structural or functional abnormalities of the kidney, manifested by either:Pathological abnormalities or Markers of kidney damage (including abnormalities in the composition of the blood or urine or abnormalities in imaging tests). [facility] - [facility] [id number] 18:49:41 Test Item Value Reference Range Interpretation Comments WBC (test code = See_Comment [Automated 0290-2) message] The sy stem which generated this result transmitted reference range : 4.50 - 13.50 10*3/?L. The reference range was not used to interpret this result as normal/abnormal . RBC (test code = See_Comment [Automated 969-8) message] The sy stem which generated this result transmitted reference range : 4.10 - 5.10 10*6/?L. The reference range was not used to interpret this result as normal/abnormal . HGB (test code = 12.6 g/dL 12-16 718-7) HCT (test code = 39.5 % 36-45 4544-3) MCV (test code = 90.2 fL 78-95 787-2) MCH (test code = 28.8 pg 26-32 785-6) MCHC (test code = 31.9 g/dL 32-36 L 786-4) RDW-SD (test code = 41.5 fL 38.5-49 72733-0) RDW-CV (test code = 12.5 % 11.5-14 788-0) PLT (test code = See_Comment [Automated 777-3) message] The sy stem which generated this result transmitted reference range : 135 - 361 10*3/ ?L. The reference r miranda was not used to interpret this result as normal/abnormal . MPV (test code = 12.7 fL 9.4-13.3 10302-1) NRBC/100 WBC (test See_Comment [Automat ed code = [id number]) message] The system which generated this result transmitted reference range : 0.0 - 10.0 /100 WBCs. The refer ence range was not u sed to interpret th is result as normal/abnormal . NRBC x10^3 (test code See_Comment [Auto mated = [id number]) message] The s ystem which generated this result transmitted reference range : 10*3/?L. The reference range was not used to interpret this result as normal/abnormal . GRAN MAT (NEUT) % 60.7 % (test code = 770-8) IMM GRAN % (test code 0.20 % = [id number]) LYMPH % (test code = 32.0 % 736-9) MONO % (test code = 6.5 % 5905-5) EOS % (test code = 0.2 % 713-8) BASO % (test code = 0.4 % 706-2) GRAN MAT x10^3(ANC) 3.29 10*3/uL 1.5-10.3 (test code = 7003806453) IMM GRAN x10^3 (test 0-0.06 code = 0514022696) LYMPH x10^3 (test code 1.73 10*3/uL 0.7-7.4 = 731-0) MONO x10^3 (test code 0.35 10*3/uL 0-0.5 = 742-7) EOS x10^3 (test code = 0-0.4 711-2) BASO x10^3 (test code 0-0.1 = 704-7) Lab Interpretation Abnormal (test code = 84807-4) [facility]"
[2023-05-21 17:44] LABS: RBC Red Blood Cell Count 4.48 M/uL (3.86-4.86)
[2023-05-21 17:45] LABS: Absolute Lymphocytes (CBC) 2.2 K/uL (0.7-4.9); Lymphocytes % 28.3 % (15.3-44.8); MCV 87.2 fL (80-100); MPV 9.3 fL (7.6-11.3); Platelets 239 thou/uL (152-406)
[2023-05-21] MEDS ORDERED: ONDANSETRON 4 MG/2 ML VIAL ONE (17:48)
[2023-05-21] MEDS ORDERED: FAMOTIDINE 20 MG/2 ML VIAL IV ONE (17:48)
[2023-05-21] MEDS ORDERED: KETOROLAC 30 MG/ML INJ ONE (17:48)
[2023-05-21] MEDS ORDERED: NA CHLORIDE 0.9% 1,000 ML ONE (17:48)
[2023-05-21 17:51] LABS: SARS-CoV-2 Antigen Rapid Res Negative (Negative)
[2023-05-21 18:12] LABS: Specific Gravity > 1.030 (1.005-1.030); Urine Bacteria <20 /HPF (<20); Urine Bilirubin NEGATIVE (Negative); Urine Blood Negative (Negative); Urine Clarity Clear (Clear); Urine Color Yellow (Yellow); Urine Glucose NEGATIVE (Negative); Urine Mucus Slight /HPF (None Seen); Urine Protein TRACE (Negative); Urine RBC <5 /HPF (None Seen); Urine Urobilinogen 1+ (Normal)
--- NOTE | 2023-05-21 18:24 | RAD REPORT ---
EXAM DESCRIPTION: Johny Single View05/21/2023 5:52 pm CLINICAL HISTORY: Cough;Congestion COMPARISON: No comparisons TECHNIQUE: Portable AP view of the chest. FINDINGS: The lungs are clear. No pneumothorax or effusion. The cardiomediastinal contours are unre markable. IMPRESSION: No acute cardiopulmonary process.
[2023-05-21 18:29] LABS: Specific Gravity > 1.030 (1.005-1.030)
[2023-05-21 18:30] LABS: Potassium 3.3 mEq/L (3.5-5.1)
[2023-05-21 18:32] LABS: Bilirubin Total 0.3 mg/dL (0.2-1.0)
[2023-05-21 18:33] LABS: Albumin 3.3 g/dL (3.4-5.0)
--- NOTE | 2023-05-21 19:12 | EDPHYS ---
Physician Documentation [facility] Name: Parvin Kumar Age: 17 yrs Sex: Female : 2005 Arrival Date: 05/21/2023 Time: 16:51 Bed 17 Private MD: ED Physician Shane Llanes HPI: 05/21 19:02 This 17 yrs old Female presents to ER via Ambulatory with complaints of Chest Pain, Can kb Feel Organs Jump In Abd. 19:02 patient is a 17-year-old female who presents for sore throat, cough, nausea, congestion kb that started 4 days ago. States she was seen in [place] [facility] yesterday and started taking an antibiotic for UTI which caused abdominal pain and chest pain. Patient states [facility] did a flu test that was negative, strep test that was negative, labs and EKG.. 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 - Social history:: Smoking status: Reported history of juuling and/or vaping. ROS: 19:00 Constitutional: Negative for fever, chills, and weight loss, kb 19:00 ENT: Positive for sore throat, 19:00 Cardiovascular: Positive for chest pain, 19:00 Respiratory: Positive for cough, 19:00 Abdomen/GI: Positive for abdominal pain, nausea, 19:00 All other systems are negative, Exam: 17:47 Constitutional: This is a well developed, well nourished patient who is awake, alert, kb and in no acute distress. Head/Face: Normocephalic, atraumatic. ENT: Moist Mucous membranes Cardiovascular: Regular rate Respiratory: Respirations even and unlabored. No increased work of breathing. Talking in full sentences Abdomen/GI: Soft, non-tender. No distention Back: No spinal tenderness. No costovertebral tenderness. Full range of motion. Skin: Warm, dry with normal turgor. Normal color. MS/ Extremity: Pulses equal, no cyanosis. Neurovascular intact. Full, normal range of motion. Neuro: Awake and alert, GCS 15, oriented to person, place, time, and situation. Moves all extremities. Normal gait. 17:47 ECG was reviewed by the Attending Physician. Vital Signs: 17:05 BP 117 / 73; Pulse 88; Resp 18 S; Temp 98(TE); Pulse Ox 100% on R/A; aa5 17:05 Weight 59.42 kg (M); aa5 18:34 BP 99 / 59; Pulse 63; Resp 16 S; Pulse Ox 100% on R/A; kc6 19:43 BP 99 / 54; Pulse 75; Resp 15 S; Pulse Ox 100% on R/A; ha1 MDM: 16:56 Patient medically screened. kb 19:00 Differential diagnosis: flu, covid, uti, GERD. Data reviewed: vital signs, nurses kb notes. Test considered but Not performed: CT: CT considered, but pt has no point tenderness, labs wnl. Counseling: I had a detailed discussion with the patient and/or guardian regarding the historical points, exam findings, and any diagnostic results supporting the discharge/admit diagnosis, lab results, radiology results, the need for outpatient follow up, a family practitioner, to return to the emergency department if symptoms worsen or persist or if there are any questions or concerns that arise at home. 05/21 17:03 Order name: CBC with Diff; Complete Time: 17:47 kb 05/21 17:03 Order name: CMP 05/21 17:03 Order name: Lipase 05/21 17:03 Order name: Test, Urine; Complete Time: 18:34 kb 05/21 17:03 Order name: Urinalysis w/ reflexes; Complete Time: 18:28 kb 05/21 17:03 Order name: Troponin High Sensitivity 05/21 17:03 Order name: SARS RAPID; Complete Time: 17:52 kb 05/21 17:03 Order name: Flu; Complete Time: 18:05 kb 05/21 17:03 Order name: Chest Single View XRAY; Complete Time: 18:28 kb 05/21 17:03 Order name: EKG; Complete Time: 17:03 kb 05/21 17:03 Order name: IV Saline Lock; Complete Time: 17:27 kb 05/21 17:03 Order name: Labs collected and sent; Complete Time: 17:27 kb 05/21 17:03 Order name: EKG - Nurse/Tech; Complete Time: 17:47 kb EC:47 Rate is 74 beats/min. Rhythm is regular. QRS [place] is Normal. LA interval is shortened kb at 102 msec. QRS interval is normal at 86 msec. QT interval is normal at 408 msec. Administered Medications: 17:47 Drug: NS 0.9% IV 1000 ml IV at 1 bolus Per protocol; 1000 mL bolus Route: IV; Rate: 1 kc6 bolus; Site: right antecubital; 17:47 Drug: Famotidine IVP 20 mg IVP once; dilute with 10 mL 0.9% NaCl; give over 2 minutes kc6 Route: IVP; Site: right antecubital; 17:47 Drug: TORadol - Ketorolac IVP 15 mg IVP once Route: IVP; Site: right antecubital; kc6 17:47 Drug: Ondansetron IVP 4 mg IVP once; over 2 minutes Route: IVP; Site: right antecubital;kc6 Disposition Summary: 05/21/23 19:11 Discharge Ordered Notes: Location: Home kb Condition: Stable kb Diagnosis - Acute upper respiratory infection, unspecified kb - Upper abdominal pain, unspecified kb - Chest pain, unspecified kb Followup: kb - With: Emergency Department - When: As needed - Reason: Worsening of condition Followup: kb - With: Private Physician - When: 2 - 3 days - Reason: Recheck today's complaints, Continuance of care, Re-evaluation by your physician Discharge Instructions: - Discharge Summary Sheet kb - Abdominal Pain, Adult, [id number] kb - Nonspecific Chest Pain, Adult, [id number] kb - Upper Respiratory Infection, Adult, [id number] kb Forms: - Medication Reconciliation Form kb - Thank You Letter kb - Antibiotic Education kb - Prescription Opioid Use kb - Patient Portal Instructions kb - Leadership Thank You Letter kb Signatures: Dispatcher [employer] Cassandra Bernal, LEIDA-C MANAGER [place]-Evelyn Sweeney, RN RN aa5 Regine Gibson RN RN kc6
--- NOTE | 2023-05-21 19:12 | ER ---
Nurse's Notes [facility] Name: Parvin Kumar Age: 17 yrs Sex: Female : 2005 Arrival Date: 05/21/2023 Time: 16:51 Bed 17 Private MD: Diagnosis: Acute upper respiratory infection, unspecified;Upper abdominal pain, unspecified;Chest pain, unspecified Presentation: 05/21 17:05 Chief complaint: Patient states: sore throat, cough, nausea, and congestion that began aa5 Friday. Chest pain with inspiration and nausea/vomiting. Pt states "I was seen at [facility] and I am taking an antibiotic for a UTI". Coronavirus screen: congestion, cough unrelated to allergies. Ebola Screen: Patient denies travel to an Ebola-affected area in the 21 days before illness onset. Initial Sepsis Screen: Does the patient meet any 2 criteria? No. Patient's initial sepsis screen is negative. Does the patient have a suspected source of infection? No. Patient's initial sepsis screen is negative. Risk Assessment: Do you want to hurt yourself or someone else? Patient reports no desire to harm self or others. Onset of symptoms was April 2023. 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 - Social history:: Smoking status: Reported history of juuling and/or vaping. Screenin:48 [facility] ED Fall Risk Assessment (Adult) History of falling in the last 3 months, kc6 including since admission No falls in past 3 months (0 pts) Confusion or Disorientation No (0 pts) Intoxicated or Sedated No (0 pts) Impaired Gait No (0 pts) Mobility Assist Device Used No (0 pt) Altered Elimination No (0 pt) Score/Fall Risk Level 0 - 2 = Low Risk. Abuse screen: Denies threats or abuse. Denies injuries from another. Nutritional screening: No deficits noted. Tuberculosis screening: No symptoms or risk factors identified. Assessment: 17:32 Reassessment: Patient and/or family updated on plan of care and expected duration. Pain ll1 level reassessed. 17:48 General: Appears in no apparent distress. comfortable, Behavior is calm, cooperative, kc6 appropriate for age. Pain: Complains of pain in chest Pain does not radiate. Neuro: Level of Consciousness is awake, alert, obeys commands, Oriented to person, place, time, situation, Appropriate for age Reports headache. Cardiovascular: Reports chest pain, Heart tones S1 S2 present Capillary refill < 3 seconds Rhythm is sinus rhythm. Respiratory: Reports cough that is Airway is patent Trachea midline Respiratory effort is even, unlabored, Respiratory pattern is regular, symmetrical, Denies shortness of breath. GI: Reports nausea, vomiting, Patient currently denies abdominal pain, diarrhea. : No signs and/or symptoms were reported regarding the genitourinary system. EENT: Reports difficulty swallowing nasal congestion. Derm: No signs and/or symptoms reported regarding the dermatologic system. Skin is intact, is healthy with good turgor, Skin is pink, warm \\T\\ dry. Musculoskeletal: No signs and/or symptoms reported regarding the musculoskeletal system. Circulation, motion, and sensation intact. Capillary refill < 3 seconds, Range of motion: intact in all extremities. 18:33 Reassessment: Patient appears in no apparent distress at this time. No changes from kc6 previously documented assessment. Patient and/or family updated on plan of care and expected duration. Pain level reassessed. Patient is alert, oriented x 3, equal unlabored respirations, skin warm/dry/pink. 19:44 Reassessment: Patient and/or family updated on plan of care and expected duration. Pain ha1 level reassessed. Patient is alert, oriented x 3, equal unlabored respirations, skin warm/dry/pink. Patient denies pain at this time. Patient states feeling better. Patient states symptoms have improved. Vital Signs: 17:05 BP 117 / 73; Pulse 88; Resp 18 S; Temp 98(TE); Pulse Ox 100% on R/A; aa5 17:05 Weight 59.42 kg (M); aa5 18:34 BP 99 / 59; Pulse 63; Resp 16 S; Pulse Ox 100% on R/A; kc6 19:43 BP 99 / 54; Pulse 75; Resp 15 S; Pulse Ox 100% on R/A; ha1 ED Course: 16:55 Patient arrived in ED. mg5 16:56 [facility]C [facility] kb 16:56 Shane Llanes MD is Attending Physician. kb 17:05 Arm band placed on. aa5 17:07 Triage completed. aa5 17:27 Patient placed in an exam room, on a stretcher. ll1 17:27 CBC with Diff Sent. bc6 17:27 CMP Sent. bc6 17:27 Lipase Sent. bc6 17:27 Inserted saline lock: 20 gauge in right antecubital area, using aseptic technique. bc6 Blood collected. 17:29 Regine Gibson, BALDEMAR is Primary Nurse. kc6 17:32 Urinalysis w/ reflexes Sent. bc6 17:32 Test, Urine Sent. bc6 17:48 Patient has correct armband on for positive identification. Bed in low position. Call kc6 light in reach. Side rails up X 1. Client placed on continuous cardiac and pulse oximetry monitoring. NIBP monitoring applied. phototypesetting equipment monitor on. 17:48 Patient maintains SpO2 saturation greater than 95% on room air. kc6 17:54 Chest Single View XRAY In Process Unspecified. EDMS 19:06 Report given to Charla Banks RN. kc6 19:44 No provider procedures requiring assistance completed. IV discontinued, intact, ha1 bleeding controlled, No redness/swelling at site. Pressure dressing applied. Administered Medications: 17:47 Drug: NS 0.9% IV 1000 ml IV at 1 bolus Per protocol; 1000 mL bolus Route: IV; Rate: 1 kc6 bolus; Site: right antecubital; 17:47 Drug: Famotidine IVP 20 mg IVP once; dilute with 10 mL 0.9% NaCl; give over 2 minutes kc6 Route: IVP; Site: right antecubital; 17:47 Drug: TORadol - Ketorolac IVP 15 mg IVP once Route: IVP; Site: right antecubital; kc6 17:47 Drug: Ondansetron IVP 4 mg IVP once; over 2 minutes Route: IVP; Site: right antecubital;kc6 Medication: 19:45 VIS not applicable for this client. ha1 Outcome: 19:11 Discharge ordered by . kb 19:44 Discharged to home ambulatory, with family, ha1 19:44 Condition: stable 19:44 Discharge instructions given to patient, family, Instructed on discharge instructions, follow up and referral plans. Demonstrated understanding of instructions, follow-up care, 19:45 Patient left the ED. ha1 Signatures: Dispatcher [employer] EDMS Cassandra Antoine, LILIYA CASAREZ-Evelyn Sweeney RN RN aa5 Cosmo Torres RN RN 1 Charla Banks RN RN ha1 Regine Gibson RN RN kc6 Carine Duffy [facility] [place] Null mg5 Corrections: (The following items were deleted from the chart) 17:51 17:48 Respiratory: Airway is patent Trachea midline Respiratory effort is even, kc6 unlabored, Respiratory pattern is regular, symmetrical, Denies shortness of breath kc6 17:51 17:48 EENT: Reports difficulty swallowing kc6 kc6 17:51 17:48 GI: No signs and/or symptoms were reported involving the gastrointestinal system. kc6 kc6
[2023-05-21 19:23] LABS: Protein, Total 7.7 g/dL (6.4-8.2)
[2023-05-21 19:30] LABS: Troponin High Sensitivity 3.2 pg/mL (<58.9)
[2023-05-21 20:19] VITALS: TEMP 98; O2SAT 100
[2023-05-21 20:22] VITALS: BP 99/54
--- NOTE | 2023-05-22 15:13 | EKG ---
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
== END 2023-05-21 19:45 | disposition home or self-care (01) ==
LOC: ER 16:51
DX: J06.9 Acute upper respiratory infection, unspecified (principal); R10.10 Upper abdominal pain, unspecified; Z11.52 Encounter for screening for COVID-19
CPT/HCPCS: 36415; 71045; 80053; 81001; 81025; 83690; 84484; 85025; 87804; 87811; 93005; 96374; 96375; 99285; J2405; J7030

== ENCOUNTER 2023-09-28 13:28 | Emergency (ER) | payer SELFPAY ==
--- OUTSIDE RECORDS SUMMARY | 2023-09-28 13:31 | XMS REPORT | Continuity of Care Document ---
Author Name Unknown Address [address] [facility] [address] [place] [address] [facility] Address [address] [facility] [address] [place] [address] Care Team Providers Care [place] Superintendent Name Role Phone MADALYN EVANGELISTA Primary Care Physician Unavailab SEJAL Thompson Attending Clinician SEJAL Patino Attending Clinician Hollis Swartz MD Attending Clinician [phone] HOLLIS ARORA Attending Clinician Unavailable MADALYN EVANGELISTA Attending Clinician Unavailable LOUISE BENSON Attending Clinician Unavailable ASAEL CHEEMA Attending Clinician Unavail able Asael Cheema MD Attending Clinician Doctor Unassigned, Toyah Attending Clinician U Louise Dao MD Attending Clinician [phone] JEVON MUELLER Attending Clinician Unavailable Jevon Mueller MD Attending Clinician [phone] BRANDI IRELAND Attending Clinician Unavailable SILVIA QUINN Attending Clinician Unavailable SILVIA QUINN Attending Clinician Unavailable Madalyn Le Attending Clinician [phone] Brandi Ireland MD Attending Clinician [phone] Lab, Ang - Db Attending Clinician Unavailable Roya Livingston MD Attending Clinician [phone] ROYA LIVINGSTON Attending Clinician ROYA Luo Admitting Clinician BRANDI Argueta Admitting Clinician Unavailable Payers Payer Name Policy Type Policy Number Effective Date Expirati on Date Source [facility] [id number] 2022 00:00:00 Problems Condition Name Condition Details Condition Category Status Onset Date Resolution Date Last Treatment Date Treating Clinician Comments Source Encounter for surveillan ce of contracept priscilla pills Encounter for surveillan ce of contracept priscilla pills Disease Active 6-06 00:00: 00 [facility] ROSMERY positive ROSMERY positive Disease Active 3- 00:00: 00 [facility] Anxiety and depression Anxiety and depression Disease Active 3- 00:00: 00 [facility] Lumbar back pain Lumbar back pain Disease Active 08-19 00:00: 00 [facility] Encounter to establish care Encounter to establish care Disease Active 08-19 00:00: 00 [facility] Syncope, unspecifie d syncope type Syncope, unspecifie d syncope type Disease Active 2021-06 0-24 00:00: 00 [facility] Fatigue, unspecifie d type Fatigue, unspecifie d type Disease Active 2021-06 0-24 00:00: 00 [facility] No known active problems No known active problems Disease [facility] Allergies, Adverse Reactions, Alerts Allergy Name Allergy Type Status Severity Reaction(s) Onset Date Inactive Date Treating Clinician Comments Source Amoxicil maksim Propensi ty to adverse reaction s Active Diarrhea - 00:00: 00 [facility] AMOXICIL MAKSIM DRUG INGREDI Active Diarrhea - 00:00: 00 [facility] CITRUS AND DERIVATI VES Drug Class Active Hives - 00:00: 00 [facility] [place] And Derivati ves Propensi ty to adverse reaction s Active Rash - 00:00: 00 [facility] NO KNOWN ALLERGIE S Drug Class Active [facility] Social History Social Habit Start Date Stop Date Quantity Comments Source [facility] Alcohol intake 2023-05-19 00:00:00 2023-05-19 00:00:00 Ex-drinker (finding) [facility] Exposure to SARS-CoV-2 (event) 2022-10-11 00:00:00 2022-10-21 15:08:00 Not sure [facility] History of Social function 2022-08-28 00:00:00 2022-08-28 00:00:00 [facility] Tobacco use and exposure 2022-08-19 00:00:00 2022-08-19 00:00:00 Smokeless tobacco non-user [facility] Alcohol Comment 2021-12-04 00:00:00 2021-12-04 00:00:00 social [facility] History SDOH Alcohol Frequency 2020-08-22 00:00:00 2020-08-22 00:00:00 1 [facility] History SDOH Alcohol Std Drinks 2020-08-22 00:00:00 2020-08-22 00:00:00 99 [facility] History SDOH Alcohol Binge 2020-08-22 00:00:00 2020-08-22 00:00:00 1 [facility] Sex Assigned At 2003 00:00:00 2005 00:00:00 [facility] Smoking Status Start Date Stop Date Source Never smoked tobacco [facility] Medications Ordered Medication Name Filled Medication Name Start Date Stop Date Current Medication? Ordering Clinician Indication Dosage Frequency Signature (SIG) Comments Components Source cephALEXin (KEFLEX) 500 mg capsule 2022-06 00:00: 00 Yes [id number] 500mg Take 1 capsule by mouth 4 (four) times daily. [facility] neomycin-po lymyxin-hyd rocortisone 3.5-10,000- 1 mg/mL-unit/ mL-% otic susp 6- 00:00: 00 Yes [id number] 3[drp] Place 3 Drops in right ear 4 (four) times daily. [facility] naproxen 500 mg tablet 12-09 00:00: 00 12-20 04:59 :00 No [id number] 500mg Take 1 tablet by mouth in the morning and 1 tablet in the evening. Take with meals. Do all this for 10 days. [facility] levonorgest rel-ethinyl estradiol 0.15 mg-30 mcg (91) per tablet 11-26 00:00: 00 Yes [id number] 1{tbl} Take 1 tablet by mouth in the morning. [facility] levonorgest rel-ethinyl estradiol 0.15 mg-30 mcg (91) per tablet 08-29 00:00: 00 11-26 00:00 :00 No [id number] 1{tbl} Take 1 tablet by mouth in the morning. [facility] meclizine 25 mg tablet 02-08 09:54: 01 02-08 00:00 :00 No 32mg Take 32 mg by mouth 3 (three) times daily as needed. [facility] levonorgest rel-ethinyl estradiol 0.15 mg-30 mcg (91) per tablet 02-08 00:00: 00 08-29 00:00 :00 No [id number] 1{tbl} Take 1 tablet by mouth in the morning. [facility] desogestreL -ethinyl estradioL (RECLIPSEN, 28,) 0.15-0.03 mg per tablet 12-04 00:00: 00 02-08 00:00 :00 No [id number] 1{tbl} Take 1 tablet by mouth daily. [facility] QUEtiapine 300 mg tablet 2-09 00:00: 00 02-08 00:00 :00 No [facility] DENTA 5000 PLUS 1.1 % Crea 2-05 00:00: 00 02-08 00:00 :00 No [facility] venlafaxine XR 75 mg 24 hr capsule 1-26 00:00: 00 02-08 00:00 :00 No [facility] Immunizations Ordered Immunization Name Filled Immunization Name Date Status Comments Source HPV9 2022-11-26 00:00:00 Completed [facility] HPV9 2022-11-26 00:00:00 Completed [facility] HPV9 2022-11-26 00:00:00 Completed [facility] HPV9 2022-11-26 00:00:00 Completed [facility] HPV9 2022-11-26 00:00:00 Completed [facility] HPV9 2022-11-26 00:00:00 Completed [facility] HPV9 2022-11-26 00:00:00 Completed [facility] HPV9 2022-11-26 00:00:00 Completed [facility] HPV9 Unknown Completed [facility] HPV9 Unknown Completed [facility] HPV9 Unknown Completed [facility] HPV9 Unknown Completed [facility] HPV9 Unknown Completed [facility] HPV9 Unknown Completed [facility] Vital Signs Vital Name Observation Time Observation Value Comments S ource Systolic blood pressure 2023-05-20 05:49:00 99 mm[Hg] [facility] Diastolic blood pressure 2023-05-20 05:49:00 59 mm[Hg] [facility] Heart rate 2023-05-20 05:49:00 79 /min [facility] Respiratory rate 2023-05-20 05:49:00 16 /min [facility] Oxygen saturation in Arterial blood by Pulse oximetry 2023-05-20 05:49:00 100 /min [facility] Body temperature 2023-05-20 02:52:00 37.11 Ysabel [facility] Body height 2023-05-20 02:52:00 167.6 cm [facility] Body weight 2023-05-20 02:52:00 57.607 kg [facility] BMI 2023-05-20 02:52:00 20.50 kg/m2 [facility] Systolic blood pressure 2023-04-11 14:52:00 101 mm[Hg] [facility] Diastolic blood pressure 2023-04-11 14:52:00 68 mm[Hg] [facility] Heart rate 2023-04-11 14:52:00 56 /min Un[facility] Body temperature 2023-04-11 14:52:00 36.56 Ysabel [facility] Respiratory rate 2023-04-11 14:52:00 18 /min [facility] Body height 2023-04-11 14:52:00 165.1 cm [facility] Body weight 2023-04-11 14:52:00 59.194 kg [facility] BMI 2023-04-11 14:52:00 21.72 kg/m2 [facility] Oxygen saturation in Arterial blood by Pulse oximetry 2023-04-11 14:52:00 98 /min r/a [facility] Body height 2023-03-18 14:45:00 165.1 cm [facility] Body weight 2023-03-18 14:45:00 60.357 kg [facility] BMI 2023-03-18 14:45:00 22.14 kg/m2 [facility] Systolic blood pressure 2023-01-03 20:16:00 103 mm[Hg] [facility] Diastolic blood pressure 2023-01-03 20:16:00 64 mm[Hg] [facility] Heart rate 2023-01-03 20:16:00 98 /min Unive [facility] Body height 2023-01-03 20:10:00 165.1 cm [facility] Body weight 2023-01-03 20:10:00 58.106 kg [facility] BMI 2023-01-03 20:10:00 21.32 kg/m2 [facility] Systolic blood pressure 2022-12-10 00:43:00 123 mm[Hg] [facility] Diastolic blood pressure 2022-12-10 00:43:00 81 mm[Hg] [facility] Heart rate 2022-12-10 00:43:00 71 /min Un[facility] Body temperature 2022-12-10 00:43:00 37.11 Ysabel [facility] Respiratory rate 2022-12-10 00:43:00 18 /min [facility] Body height 2022-12-10 00:43:00 165.1 cm [facility] Body weight 2022-12-10 00:43:00 57.607 kg [facility] BMI 2022-12-10 00:43:00 21.13 kg/m2 [facility] Oxygen saturation in Arterial blood by Pulse oximetry 2022-12-10 00:43:00 100 /min [facility] Systolic blood pressure 2022-11-26 20:30:00 93 mm[Hg] [facility] Diastolic blood pressure 2022-11-26 20:30:00 43 mm[Hg] [facility] Heart rate 2022-11-26 20:30:00 64 /min [facility] Body temperature 2022-11-26 20:30:00 36.78 Ysabel [facility] Respiratory rate 2022-11-26 20:30:00 18 /min [facility] Body height 2022-11-26 20:30:00 163 cm [facility] Body weight 2022-11-26 20:30:00 57.879 kg [facility] BMI 2022-11-26 20:30:00 21.78 kg/m2 [facility] Systolic blood pressure 2022-10-21 20:12:00 122 mm[Hg] [facility] Diastolic blood pressure 2022-10-21 20:12:00 63 mm[Hg] [facility] Body height 2022-10-21 20:12:00 167.6 cm [facility] Body weight 2022-10-21 20:12:00 57.108 kg [facility] BMI 2022-10-21 20:12:00 20.32 kg/m2 [facility] Systolic blood pressure 2022-08-28 16:18:00 115 mm[Hg] [facility] Diastolic blood pressure 2022-08-28 16:18:00 60 mm[Hg] [facility] Heart rate 2022-08-28 16:18:00 79 /min Unive [facility] Body temperature 2022-08-28 16:18:00 37.22 Ysabel [facility] Body height 2022-08-28 16:18:00 167.6 cm [facility] Body weight 2022-08-28 16:18:00 56.7 kg [facility] BMI 2022-08-28 16:18:00 20.18 kg/m2 [facility] Body mass index (BMI) [Percentile] Per age and sex 2022-08-28 16:18:00 31.77 % [facility] Oxygen saturation in Arterial blood by Pulse oximetry 2022-08-28 16:18:00 99 /min [facility] Systolic blood pressure 2022-08-19 15:06:00 108 mm[Hg] [facility] Diastolic blood pressure 2022-08-19 15:06:00 70 mm[Hg] [facility] Heart rate 2022-08-19 15:06:00 83 /min [facility] Body temperature 2022-08-19 15:06:00 37.17 Ysabel [facility] Body height 2022-08-19 15:06:00 167.6 cm [facility] Body weight 2022-08-19 15:06:00 58.015 kg [facility] BMI 2022-08-19 15:06:00 20.64 kg/m2 [facility] Body mass index (BMI) [Percentile] Per age and sex 2022-08-19 15:06:00 38.20 % [facility] Oxygen saturation in Arterial blood by Pulse oximetry 2022-08-19 15:06:00 98 /min [facility] Systolic blood pressure 2022-02-08 14:12:00 101 mm[Hg] [facility] Diastolic blood pressure 2022-02-08 14:12:00 67 mm[Hg] [facility] Heart rate 2022-02-08 14:12:00 81 /min [facility] Body temperature 2022-02-08 14:12:00 36.78 Ysabel [facility] Body height 2022-02-08 14:12:00 167.6 cm [facility] Body weight 2022-02-08 14:12:00 59.512 kg [facility] BMI 2022-02-08 14:12:00 21.18 kg/m2 [facility] Body mass index (BMI) [Percentile] Per age and sex 2022-02-08 14:12:00 47.21 % [facility]ner o [facility] Procedures Procedure Date / Time Performed Performing Clinician Source TROPONIN I 2023-05-20 04:01:00 Hollis Arora [facility] COMP. METABOLIC PANEL (07809) 2023-05-20 04:01:00 Hollis Arora [facility] CBC WITH DIFF 2023-05-20 04:01:00 Hollis Arora [facility] URINALYSIS 2023-05-20 04:01:00 Hollis Arora [facility] RAPID STREP SCREEN FOR GROUP A 2023-05-20 04:01:00 Hollis Arora [facility] RAPID INFLUENZA A/B 2023-05-20 04:01:00 Hollis Arora [facility] POCT TEST 2023-05-20 04:01:00 Hollis Arora [facility] CONSENT/REFUSAL FOR DIAGNOSIS AND TREATMENT 2023-05-20 02:29:15 Doctor Unassigned, Toyah [facility] STATEMENT OF PATIENT FINANCIAL RESPONSIBILITY 2023-04-11 05:01:00 Doctor Unassigned, Toyah [facility] CONSENT/REFUSAL FOR DIAGNOSIS AND TREATMENT 2023-01-03 20:03:41 Doctor Unassigned, Toyah [facility] ASSIGNMENT OF BENEFITS 2022-12-10 01:08:19 Docto r Unassigned, Toyah [facility] CONSENT/REFUSAL FOR DIAGNOSIS AND TREATMENT 2022-12-10 00:35:59 Doctor Unassigned, Toyah [facility] GARDASIL 9 (HPV 9V) VACCINE 2022-11-26 20:55:19 Sejal Vu [facility] CONSENT FOR CONTRACEPTION 2022-11-26 05:01:00 Do ctor Unassigned, Toyah [facility] POCT TEST 2022-08-19 16:30:00 Maadlyn Evangelista [facility] CORTISOL AM 2022-03-25 15:37:00 Silvia [facility] FREE T4 2022-03-25 15:37:00 Sakshi [facility] THYROID STIMULATING HORMONE 2022-03-25 15:37:00 Silvia Quinn [facility] COMP. METABOLIC PANEL (20625) 2022-03-25 15:37:00 Sakshi [facility] CBC WITH DIFF 2022-03-25 15:37:00 Silvia Quinn [facility] GLYCOSYLATED HEMOGLOBIN (A1C) 2022-03-25 15:37:00 Sakshi [facility] FREE T3 2022-03-25 15:37:00 Silvia [facility] US PELVIS COMPLETE WITH TRANSVAGINAL 2022-02-20 19:31:10 Brandi Ireland [facility] Encounters Start Date/Time End Date/Time Encounter Type Admission Type Attending Clinicians Care Facility Care Department Encounter ID Source 2023-05-19 20:55:00 2023-05-19 23:51:00 Emergency Hollis Arora S [facility] 1.2.840.114 350.1.13.10 4.2.7.2.686 [id number] [facility] 2023-05-19 20:55:00 2023-05-19 23:51:00 Emergency X HOLLIS ARORA [facility] ERT [id number] [facility] 2023-04-23 13:30:00 2023-04-23 13:30:00 Outpatient R MADALYN EVANGELISTA [facility] [id number] [facility] 2023-04-11 12:15:00 2023-04-11 12:15:00 Outpatient Darien [facility] [id number] [facility] 2023-04-11 10:00:00 2023-04-11 11:23:53 Outpatient R ASAEL CHEEMA [facility] [id number] [facility] 2023-04-11 10:00:00 2023-04-11 11:23:53 [facility] 1.2840.114 350.1.13.10 4.2.7.2.686 [id number] [facility] 2023-04-11 00:00:00 2023-04-11 00:00:00 Orders Only Doctor Unassigned, Toyah [facility] 1.2840.114 350.1.13.10 4.2.7.2.686 [id number] [facility] 2023-03-18 10:00:00 2023-03-18 10:15:00 Office Visit Louise Benson [facility] LIZBETH 1.2840.114 350.1.13.10 4.2.7.2.686 [id number] [facility] 2023-03-18 10:00:00 2023-03-18 10:00:00 Outpatient R MARCELINO LOUISE [facility] [id number] [facility] 2023-01-03 15:45:00 2023-01-03 16:00:00 Office Visit Louise Benson [facility] IDANIA 1.2840.114 350.1.13.10 4.2.7.2.686 [id number] [facility] 2023-01-03 15:45:00 2023-01-03 15:45:00 [facility] [id number] 2023-01-03 00:00:00 2023-01-03 00:00:00 Orders Only Doctor Unassigned, Toyah [facility] 1.2840.114 350.1.13.10 4.2.7.2.686 [id number] [facility] 2022-12-09 19:46:00 2022-12-09 20:22:00 Emergency X JVEON MUELLER [facility] ERT [id number] [facility] 2022-12-09 19:46:00 2022-12-09 20:22:00 Emergency Jevon Mueller [facility] 1.840.114 350.1.13.10 4.2.7.2.686 [id number] [facility] 2022-12-09 00:00:00 2022-12-09 00:00:00 Orders Only Doctor Unassigned, Toyah [facility] 1.0.114 350.1.13.10 4.2.7.2.686 [id number] [facility] 2022-11-26 15:30:00 2022-11-26 15:58:32 Outpatient R ROCKY Ferguson, SEJAL ROCKY S [facility] [id number] [facility] 2022-11-26 15:30:00 2022-11-26 15:58:32 Office Visit Rocky ferguson [facility] 1.0.114 350.1.13.10 4.2.7.2.686 [id number] [facility] 2022-11-26 00:00:00 2022-11-26 00:00:00 Orders Only Doctor Unassigned, Toyah [facility] 1..114 350.1.13.10 4.2.7.2.686 [id number] [facility] 2022-10-21 15:30:00 2022-10-21 15:48:47 Outpatient R SILVIA QUINN YU [facility] [id number] [facility] 2022-10-21 15:30:00 2022-10-21 15:48:47 Office Visit Silvia Quinn [facility] 1.114 350.1.13.10 4.2.7.2.686 [id number] [facility] 2022-09-01 00:00:00 2022-09-01 00:00:00 Patient Secure Msg Doctor Unassigned, Toyah [facility] 1.114 350.1.13.10 4.2.7.2.686 [id number] [facility] 2022-08-28 10:30:00 2022-08-28 10:53:44 Outpatient R MADALYN EVANGELISTA [facility] [id number] [facility] 2022-08-28 10:30:00 2022-08-28 10:53:44 Office Visit Jean Carlos Madalyn [facility] 1.114 350.1.13.10 4.2.7.2.686 [id number] [facility] 2022-08-28 00:00:00 2022-08-28 00:00:00 Refill Brandi Ireland [facility] 1.84114 350.1.13.10 4.2.7.2.686 [id number] [facility] 2022-08-19 10:00:00 2022-08-19 10:38:59 Outpatient R MADALYN EVANGELISTA [facility] [id number] [facility] 2022-08-19 10:00:00 2022-08-19 10:15:00 Mental Health Specialist Visit Lab, [facility]en [facility] 1.84.114 350.1.13.10 4.2.7.2.686 [id number] [facility] 2022-08-19 09:00:00 2022-08-19 09:30:00 Office Visit Madalyn Evangelista [facility] 1.2.840.114 350.1.13.10 4.2.7.2.686 [id number] [facility] 2022-06-26 11:30:00 2022-06-26 11:30:00 Outpatient SILVIA DOYLE YU [facility] [id number] [facility] 2022-04-23 00:00:00 2022-04-23 00:00:00 Telephone Silvia uQinn [facility] 1.2.840.114 350.1.13.10 4.2.7.2.686 [id number] [facility] 2022-04-12 16:40:00 2022-04-12 23:59:00 [facility] 1.2.840.114 350.1.13.10 4.2.7.2.686 [id number] [facility] 2022-04-12 00:00:00 2022-04-12 23:59:00 [facility] [id number] 2022-04-11 14:13:00 2022-04-11 23:59:00 Hospital Encounter Roya Livingston [facility] 1.2.840.114 350.1.13.10 4.2.7.2.686 [id number] [facility] 2022-04-11 00:00:00 2022-04-11 23:59:00 Outpatient ROYA HENDERSON [facility] ACO [id number] [facility] 2022-04-08 09:45:00 2022-04-08 11:28:30 Mental Health Specialist Visit Lab, Silvia Rae [facility] 1.2.840.114 350.1.13.10 4.2.7.2.686 [id number] [facility] 2022-04-08 09:45:00 2022-04-08 09:45:00 Outpatient R SILVIA QUINN [facility] [id number] [facility] 2022-03-27 00:00:00 2022-03-27 00:00:00 Patient Secure Msjonathan Quinn [facility] LIAN?[facility] 1..840.114 350.1.13.10 4.2.7.2.686 [id number] [facility] 2022-03-25 08:15:00 2022-03-25 11:12:21 Mental Health Specialist [facility] 1.840.114 350.1.13.10 4.2.7.2.686 [id number] [facility] 2022-03-25 09:30:00 2022-03-25 10:11:54 Outpatient R SILVIA QUINN [facility] [id number] [facility] 2022-03-25 09:30:00 2022-03-25 10:11:54 [facility] 1.2.840.114 350.1.13.10 4.2.7.2.686 [id number] [facility] 2022-03-25 00:00:00 2022-03-25 00:00:00 Telephone Sakshi [facility] 1..840.114 350.1.13.10 4.2.7.2.686 [id number] [facility] 2022-02-26 00:00:00 2022-02-26 00:00:00 Telephone Adum, Brandi Mcallister [facility] 1.2.840.114 350.1.13.10 4.2.7.2.686 [id number] [facility] 2022-02-20 13:52:15 2022-02-20 23:59:00 Outpatient R ADUM, BRANDI [facility] [id number] [facility] 2022-02-20 13:52:15 2022-02-20 23:59:00 Hospital Encounter Adum, Brandi Mcallister [facility] 1.2.840.114 350.1.13.10 4.2.7.2.686 [id number] [facility] 2022-02-08 09:15:00 2022-02-08 09:58:12 Office Visit Adum, Brandi Mcall[facility] [facility] 1.2.840.114 350.1.13.10 4.2.7.2.686 [id number] 134 [id number] [facility] 2022-02-08 09:15:00 2022-02-08 09:58:12 Outpatient R ADUMBRANDI [facility] [id number] [facility] 2022-02-08 09:15:00 2022-02-08 09:15:00 Outpatient R ADUM, BARNDI [facility] [id number] [facility] 2022-02-07 00:00:00 2022-02-07 00:00:00 Telephone AdumBrandi [facility] 1.2.840.114 350.1.13.10 4.2.7.2.686 [id number] 134 [id number] [facility] 2021-12-04 15:30:00 2021-12-04 16:53:18 Outpatient R ADUMBRANDI [facility] [id number] [facility] 2021-12-04 15:30:00 2021-12-04 16:53:18 Office Visit AdBrandi nelson [facility] 1.2840.114 350.1.13.10 4.2.7.2.686 [id number] 134 [id number] [facility] 2021-12-04 00:00:00 2021-12-04 00:00:00 Orders Only Doctor Unassigned, Toyah [facility] 1.2840.114 350.1.13.10 4.2.7.2.686 [id number] [id number] [facility] 2021-11-16 00:00:00 2021-11-16 00:00:00 Refill AdBrandi nelson [facility] 1.2840.114 350.1.13.10 4.2.7.2.686 [id number] 134 [id number] [facility] 2021-11-07 00:00:00 2021-11-07 00:00:00 Orders Only Doctor Unassigned, Toyah [facility] 1.20.114 350.1.13.10 4.2.7.2.686 [id number] [id number] [facility] 2021-02-27 13:54:27 2021-02-27 15:02:19 Office Visit KarthikeyanBrandi nelson [facility] 1.2840.114 350.1.13.10 4.2.7.2.686 [id number] 134 [id number] [facility] 2021-02-27 14:00:00 2021-02-27 14:00:00 Outpatient R KARTHIKEYANBRANDI NELSON [facility] [id number] [facility] 2021-02-27 00:00:00 2021-02-27 00:00:00 Letter (Out) KarthikeyanBrandi nelson [facility] 1.2840.114 350.1.13.10 4.2.7.2.686 [id number] 134 [id number] [facility] 2021-02-27 00:00:00 2021-02-27 00:00:00 Letter (Out) AdBrandi nelson [facility] 1.2.840.114 350.1.13.10 4.2.7.2.686 [id number] 134 [id number] [facility] 2020-08-23 00:00:00 2020-08-23 00:00:00 Case Management AdBrandi nelson [facility] 1.2.840.114 350.1.13.10 4.2.7.2.686 [id number] 134 [id number] [facility] 2020-08-22 15:10:24 2020-08-22 16:42:12 Office Visit AdBrandi nelson [facility] 1.2.840.114 350.1.13.10 4.2.7.2.686 [id number] 134 [id number] [facility] 2020-08-22 15:00:00 2020-08-22 15:00:00 Outpatient R BRANDI IRELAND [facility] [id number] [facility] 2020-08-22 00:00:00 2020-08-22 00:00:00 Orders Only Doctor Unassigned, Toyah [facility] 1.2.840.114 350.1.13.10 4.2.7.2.686 [id number] [id number] [facility] Results Test Description Test Time Test Comments Results Result Co [facility]ments [facility] (29780[facility]2023-[facility]-20 04:35:54* Test Item Value Reference Range Interpretation Comme nts NA (test code = 7379779440) 139 mmol/L 135-145 K (test code = 2284184343) 4.3 mmol/L 3.5-5.0 CL (test code = 8515380918) 106 mmol/L 98-108 CO2 TOTAL (test code = 2719776848) 28 mmol/L 23-31 AGAP (test code = 7250268765) 5 2-16 BUN (test code = 1466617629) 11 mg/dL 7-23 GLUCOSE (test code = 3467234130) 91 mg/dL 70-110 CREATININE (test code = 5469621055) 0.71 mg/dL 0.50-1.04 TOTAL BILI (test code = 4633934465) 0.2 mg/dL 0.1-1.1 CALCIUM (test code = 5115022533) 9.5 mg/dL 8.6-10.6 T PROTEIN (test code = 3255300698) 7.8 g/dL 6.3-8.2 ALBUMIN (test code = 7520040312) 4.2 g/dL 3.5-5.0 ALK PHOS (test code = 8745189979) 54 U/L 34-122 ALTv (test code = 1742-6) 12 U/L 5-35 AST(SGOT) (test code = 9304227304) 20 U/L 13-40 eGFR (test code = 00989-6) 125.8 mL/min/1.73m2 CKD-EPI eGFR (20 21). Assuming creatinine has been stable day-to-day for at least three months, the eGFR indicates Category G1 (>= 90 mL/min/1.73 m2) [facility] WITH [id number] 04:26:58* Test Item Value Reference Range Interpretation Comme nts WBC (test code = 6690-2) 6.44 See_Comment [Automated [employer]] The system which generated this result transmitted reference range: 4.30 - 11.10 10*3/?L. The reference range was not used to interpret this result as normal/abnormal. RBC (test code = 789-8) 4.58 See_Comment [Automated [employer]] The system which generated this result transmitted reference range: 3.93 - 5.25 10*6/?L. The reference range was not used to interpret this result as normal/abnormal. HGB (test code = 718-7) 13.4 g/dL 11.6-15.0 HCT (test code = 4544-3) 41.5 % 35.7-45.2 MCV (test code = 787-2) 90.6 fL 80.6-95.5 MCH (test code = 785-6) 29.3 pg 25.9-32.8 MCHC (test code = 786-4) 32.3 g/dL 31.6-35.1 RDW-SD (test code = 78297-2) 41.4 fL 39.0-49.9 RDW-CV (test code = 788-0) 12.5 % 12.0-15.5 PLT (test code = 777-3) 244 See_Comment [Automated messa ge] The system which generated this result transmitted reference range: 166 - 358 10*3/?L. The reference range was not used to interpret this result as normal/abnormal. MPV (test code = 84869-4) 11.6 fL 9.5-12.9 NRBC/100 WBC (test code = 6632057942) 0.0 See_Comment [Automated me ssage] The system which generated this result transmitted reference range: 0.0 - 10.0 /100 WBCs. The reference range was not used to interpret this result as normal/abnormal. NRBC x10^3 (test code = 6782777786) See_Comment [Automated me ssage] The system which generated this result transmitted reference range: 10*3/?L. The reference range was not used to interpret this result as normal/abnormal. GRAN MAT (NEUT) % (test code = 770-8) 46.1 % IMM GRAN % (test code = 9773387042) 0.20 % LYMPH % (test code = 736-9) 43.3 % MONO % (test code = 5905-5) 8.7 % EOS % (test code = 713-8) 1.4 % BASO % (test code = 706-2) 0.3 % GRAN MAT x10^3(ANC) (test code = 6582072621) 2.97 10*3/uL 1.88-7.09 IMM GRAN x10^3 (test code = 0312129634) 0.00-0.06 LYMPH x10^3 (test code = 731-0) 2.79 10*3/uL 1.32-3.29 MONO x10^3 (test code = 742-7) 0.56 10*3/uL 0.33-0.92 EOS x10^3 (test code = 711-2) 0.09 10*3/uL 0.03-0.39 BASO x10^3 (test code = 704-7) 0.01-0.07 [facility] [id number] 04:01:00* Test Item Value Reference Range Interpretation Comme nts POCT PREG (test code = 1605) Negative On board controls acceptable with C Line (test code = 3574) Yes Lab Interpretation (test cod e = 90131-3) Normal [facility] [id number] 16:30:00* Test Item Value Reference Range Interpretation Comme nts POCT PREG (test code = 1605) Negative On board controls acceptable with C Line (test code = 3574) Yes POCT PREG LOT # (test code = 3575) POCT PREG TEST DATE ( test code = 3576) Lab Interpretation (test cod e = 19280-0) Normal [facility] [id number] 16:30:00* Test Item Value Reference Range Interpretation Comme nts POCT PREG (test code = 1605) Negative On board controls acceptable with C Line (test code = 3574) Yes POCT PREG LOT # (test code = 3575) POCT PREG TEST DATE ( test code = 3576) Lab Interpretation (test cod e = 22304-1) Normal [facility] [id number] 20:44:10* Test Item Value Reference Range Interpretation Comme nts JUSTIN AM (test code = 8119583435) 30.5 ug/dL 4.5-23 H BENOIT (test code = BENOIT) Biotin has been reported to cause a positive bias, interpret results relative to patient's use of biotin. Lab Interpretation (test code = 80503-5) Abnormal [facility] [id number] 19:51:18 * Test Item Value Reference Range Interpretation Comme nts TSH (test code = 0091668091) See_Comment [Automated messa ge] The system which generated this result transmitted reference range: 0.45 - 4.70 mIU/L. The reference range was not used to interpret this result as normal/abnormal. Lab Interpretation (test code = 34962-3) Normal [facility] [id number] 19:37:52* Test Item Value Reference Range Interpretation Comme nts FREE T4 (test code = 0437688439) See_Comment [Automated messa ge] The system which generated this result transmitted reference range: 0.78 - 2.20 ng/dL:. The reference range was not used to interpret this result as normal/abnormal. Lab Interpretation (test code = 77638-2) Normal [facility] [id number] 19:37:32* Test Item Value Reference Range Interpretation Comme nts FREE T3 (test code = 0159012992) 3.75 pg/mL 2.77-5.27 Lab Interpretation (test cod e = 55486-0) [facility] 19:36:51* Test Item Value Reference Range Interpretation Comme nts HGB A1C (test code = 4548-4) 4.6 % 4-5.7 BENOIT (test code = BENOIT) Reference RangesNormal: <5.7%Prediabetes: 5.7 - 6.4%Diabetes: > 6.5% Lab Interpretation (test code = 09282-0) [facility] (19406)2022-03-25 19:17:04* Test Item Value Reference Range Interpretation Comme nts NA (test code = 5859607730) 140 mmol/L 135-145 K (test code = 0255872123) 4.2 mmol/L 3.5-5 CL (test code = 0996284419) 106 mmol/L 98-108 CO2 TOTAL (test code = 3651228581) 25 mmol/L 23-31 AGAP (test code = 6368382255) 2-16 BUN (test code = 6614268751) 7 mg/dL 7-23 GLUCOSE (test code = 0288786087) 80 mg/dL 70-110 CREATININE (test code = 7429112367) 0.75 mg/dL 0.5-1.04 TOTAL BILI (test code = 8172836417) 0.5 mg/dL 0.1-1.1 CALCIUM (test code = 3791876147) 9.8 mg/dL 8.6-10.6 T PROTEIN (test code = 7090459901) 7.0 g/dL 6.3-8.2 ALBUMIN (test code = 5693424087) 4.0 g/dL 3.5-5 ALK PHOS (test code = 9897657360) 61 U/L 34-122 ALTv (test code = 1742-6) 11 U/L 5-35 AST(SGOT) (test code = 5214711699) 16 U/L 13-40 eGFR (test code = 8791417484) mL/min/1.73m2 BENOIT (test code = BENOIT) Association of [...] or urine or abnormalities in imaging tests). [facility] WITH [id number] 18:49:41* Test Item Value Reference Range Interpretation Comme nts WBC (test code = 6690-2) See_Comment [Automated DotBlu] The system which generated this result transmitted reference range: 4.50 - 13.50 10*3/?L. The reference range was not used to interpret this result as normal/abnormal. RBC (test code = 789-8) See_Comment [Automated [employer] ge] The system which generated this result transmitted reference range: 4.10 - 5.10 10*6/?L. The reference range was not used to interpret this result as normal/abnormal. HGB (test code = 718-7) 12.6 g/dL 12-16 HCT (test code = 4544-3) 39.5 % 36-45 MCV (test code = 787-2) 90.2 fL 78-95 MCH (test code = 785-6) 28.8 pg 26-32 MCHC (test code = 786-4) 31.9 g/dL 32-36 L RDW-SD (test code = 53633-8) 41.5 fL 38.5-49 RDW-CV (test code = 788-0) 12.5 % 11.5-14 PLT (test code = 777-3) See_Comment [Automated [employer] ge] The system which generated this result transmitted reference range: 135 - 361 10*3/?L. The reference range was not used to interpret this result as normal/abnormal. MPV (test code = 51444-4) 12.7 fL 9.4-13.3 NRBC/100 WBC (test code = 1044716161) See_Comment [Automated [employer] ssage] The system which generated this result transmitted reference range: 0.0 - 10.0 /100 WBCs. The reference range was not used to interpret this result as normal/abnormal. NRBC x10^3 (test code = 0772306762) See_Comment [Automated [employer] ge] The system which generated this result transmitted reference range: 10*3/?L. The reference range was not used to interpret this result as normal/abnormal. GRAN MAT (NEUT) % (test code = 770-8) 60.7 % IMM GRAN % (test code = 9544757444) 0.20 % LYMPH % (test code = 736-9) 32.0 % MONO % (test code = 5905-5) 6.5 % EOS % (test code = 713-8) 0.2 % BASO % (test code = 706-2) 0.4 % GRAN MAT x10^3(ANC) (test code = 0314567784) 3.29 10*3/uL 1.5-10.3 IMM GRAN x10^3 (test code = 9972371280) 0-0.06 LYMPH x10^3 (test code = 731-0) 1.73 10*3/uL 0.7-7.4 MONO x10^3 (test code = 742-7) 0.35 10*3/uL 0-0.5 EOS x10^3 (test code = 711-2) 0-0.4 BASO x10^3 (test code = 704-7) 0-0.1 Lab Interpretation (test code = 59374-5) Abnormal [facility]"
[2023-09-28] MEDS ORDERED: ONDANSETRON 4 MG/2 ML VIAL ONE (14:26)
[2023-09-28] MEDS ORDERED: NA CHLORIDE 0.9% 1,000 ML ONE (14:27)
[2023-09-28] MEDS ORDERED: FAMOTIDINE 20 MG/2 ML VIAL IV ONE (14:27)
[2023-09-28 14:47] LABS: Absolute Basophils 0.1 K/uL (0-0.5); Absolute Lymphocytes (CBC) 1.5 K/uL (0.7-4.9); Absolute Monocytes 0.4 K/uL (0.1-1.3); Absolute Neutrophil 8.7 K/uL (1.8-8.0); Basophils % 0.5 % (0-1.3); Eosinophils % 0.4 % (0-4.4); Lymphocytes % 13.8 % (15.3-44.8); MCH 29.5 pg (27.0-35.0); MCHC 33.2 g/dL (32.0-36.0); MCV 88.7 fL (80-100); MPV 10.4 fL (7.6-11.3); Monocytes % 3.7 % (3.3-12.3); Neutrophils % 81.6 % (41.7-73.7); Platelets 281 thou/uL (152-406); Red Cell Distribution Width 13.3 % (12.1-15.2)
[2023-09-28 14:58] LABS: Albumin 3.6 g/dL (3.4-5.0); Albumin/Globulin Ratio 0.9 (1.1-1.8); Anion Gap 6.1 mEq/L (5.0-15.0); Bilirubin Total 0.4 mg/dL (0.2-1.0); Globulin 3.9 g/dL (2.3-3.5); Potassium 4.1 mEq/L (3.5-5.1); Protein, Total 7.5 g/dL (6.4-8.2)
[2023-09-28 16:43] LABS: Specific Gravity 1.029 (1.005-1.030); Sqamous Epithelial <5 /HPF (None Seen); Urine Bacteria <20 /HPF (<20); Urine Bilirubin NEGATIVE (Negative); Urine Blood Negative (Negative); Urine Clarity Clear (Clear); Urine Color Yellow (Yellow); Urine Culture Reflex Order NOT NEEDED; Urine Glucose NEGATIVE (Negative); Urine Ketones NEGATIVE (Negative); Urine Microscopic Reflex YN ORDER UMIC; Urine Mucus 1+ /HPF (None Seen); Urine Nitrite NEGATIVE (Negative); Urine Protein TRACE (Negative); Urine RBC <5 /HPF (None Seen); Urine Urobilinogen Normal (Normal); Urine WBC <5 /HPF (<5); Urine pH 6.5 (5.0-7.0)
[2023-09-28 16:58] LABS: Specific Gravity 1.029 (1.005-1.030)
--- NOTE | 2023-09-28 17:08 | EDPHYS ---
Physician Documentation [facility] Name: Parvin Kumar Age: 18 yrs Sex: Female : 2005 Arrival Date: 09/28/2023 Time: 13:28 Bed 12 Private MD: HAYDE Physician Shane Llanes HPI: 09/27 14:28 This 18 yrs old Female presents to ER via Ambulatory with complaints of Vomiting, Rash. kb 14:28 Patient is a 18-year-old female who presents for nausea vomiting that started this kb morning. Also reports rash surrounding her newest tattoo to her right lower abdomen/groin area that she noticed this morning. Denies fever, diarrhea, abdominal pain.. 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 - Infectious Disease History:: Denies. - Social history:: Smoking status: Reported history of juuling and/or vaping. ROS: 14:27 Constitutional: As per HPI kb Exam: 14:27 Constitutional: This is a well developed, well nourished patient who is awake, alert, kb and in no acute distress. Head/Face: Normocephalic, atraumatic. ENT: Moist Mucous membranes Cardiovascular: Regular rate Respiratory: Respirations even and unlabored. No increased work of breathing. Talking in full sentences Abdomen/GI: Soft, non-tender. No distention MS/ Extremity: Pulses equal, no cyanosis. Neurovascular intact. Full, normal range of motion. Neuro: Awake and alert, GCS 15, oriented to person, place, time, and situation. Moves all extremities. Normal gait. 14:27 Skin: rash consistent with contact dermatitis to right groin and lower abd surrounding recent tattoo. Vital Signs: 13:44 BP 105 / 72; Pulse 83; Resp 16; Temp 98.4(O); Pulse Ox 100% on R/A; Weight 56.7 kg; hb Height 5 ft. 5 in. ; Pain 3/10; 16:00 BP 118 / 74; Pulse 80; Resp 16; Pulse Ox 99% ; hb 13:44 Body Mass Index 20.80 (56.70 kg, 165.1 cm) - Percentile 38.3 % hb 13:44 Pain Scale: Adult hb MDM: 13:30 Patient medically screened. kb 17:07 Differential diagnosis: Nonspecific abd pain, viral gastroenteritis, dehydration. Data kb reviewed: vital signs, nurses notes. Test considered but Not performed: CT: CT considered but pt has no abd tenderness, nontoxic in appearance. Counseling: I had a detailed discussion with the patient and/or guardian regarding the historical points, exam findings, and any diagnostic results supporting the discharge/admit diagnosis, lab results, the need for outpatient follow up, a family practitioner, to return to the emergency department if symptoms worsen or persist or if there are any questions or concerns that arise at home. 09/27 14:10 Order name: CBC with Diff; Complete Time: 14:56 kb 09/27 14:10 Order name: CMP; Complete Time: 15:00 kb 09/27 14:10 Order name: Lipase; Complete Time: 15:00 kb 09/27 14:10 Order name: Test, Urine; Complete Time: 17:06 kb 09/27 14:10 Order name: Urinalysis w/ reflexes; Complete Time: 16:44 kb 09/27 14:10 Order name: IV Saline Lock; Complete Time: 14:24 kb 09/27 14:10 Order name: Labs collected and sent; Complete Time: 14:24 kb 09/27 15:40 Order name: PO challenge; Complete Time: 16:00 kb Administered Medications: 14:29 Drug: NS 0.9% IV 1000 ml IV at 1 bolus Per protocol; 1000 mL bolus Route: IV; Rate: 1 nj1 bolus; Site: left antecubital; 15:40 Follow up: Response: No adverse reaction; IV Status: Completed infusion; IV Intake: hb 1000ml 14:29 Drug: Ondansetron IVP 4 mg IVP once; over 2 minutes Route: IVP; Site: left antecubital; nj1 15:15 Follow up: Response: No adverse reaction hb 14:31 Drug: Famotidine IVP 20 mg IVP once; dilute with 10 mL 0.9% NaCl; give over 2 minutes nj1 Route: IVP; Site: left antecubital; 15:15 Follow up: Response: No adverse reaction hb Disposition Summary: 09/28/23 17:08 Discharge Ordered Notes: Location: Home kb Condition: Stable kb Diagnosis - Nausea with vomiting, unspecified kb - Unspecified contact dermatitis, unspecified cause kb Followup: kb - With: Emergency Department - When: As needed - Reason: Worsening of condition Followup: kb - With: Private Physician - When: 2 - 3 days - Reason: Recheck today's complaints, Continuance of care, Re-evaluation by your physician Discharge Instructions: - Discharge Summary Sheet kb - Nausea and Vomiting, Adult, Ghrv-bu-Kxqj kb - Contact Dermatitis, Tyfc-sz-Zasp kb Forms: - Medication Reconciliation Form kb - Thank You Letter kb - Antibiotic Education kb - Prescription Opioid Use kb - Patient Portal Instructions kb - Leadership Thank You Letter kb Prescriptions: - ondansetron 4 mg Oral Tablet,disintegrating - take 1 tablet ORAL route every 6 hours As needed; 12 tablet; Refills: 0, kb Product Selection Permitted Signatures: Dispatcher [employer] EDCassandra Tapia, HOGSHEAD INSPECTOR-C HOGSHEAD INSPECTOR-Kati Bass, RN RN Pamela Esparza, RN RN nj1 Corrections: (The following items were deleted from the chart) 14:10 14:10 CBC+H.LAB.BRZ ordered. EDMS EDMS 14:10 14:10 COMPREHENSIVE METABOLIC PANEL+C.LAB.BRZ ordered. EDMS EDMS 14:10 14:10 LIPASE+C.LAB.BRZ ordered. EDMS EDMS 14:10 14:10 Test, Urine+UC.LAB.BRZ ordered. EDMS EDMS 14:10 14:10 Urinalysis+U.LAB.BRZ ordered. EDMS EDMS
--- NOTE | 2023-09-28 17:08 | ER ---
Nurse's Notes [facility] Name: Parvin Kumar Age: 18 yrs Sex: Female : 2005 Arrival Date: 09/28/2023 Time: 13:28 Bed 12 Private MD: Diagnosis: Nausea with vomiting, unspecified;Unspecified contact dermatitis, unspecified cause Presentation: 09/27 13:44 Chief complaint: N/V and headache since this morning. Not tolerating fluids. hb Coronavirus screen: At this time, the client does not indicate any symptoms associated with coronavirus-19. Ebola Screen: No symptoms or risks identified at this time. Initial Sepsis Screen: Does the patient meet any 2 criteria? No. Patient's initial sepsis screen is negative. Does the patient have a suspected source of infection? No. Patient's initial sepsis screen is negative. Risk Assessment: Do you want to hurt yourself or someone else? Patient reports no desire to harm self or others. Onset of symptoms was September 28, 2023. 13:44 Method Of Arrival: Ambulatory hb 13:44 Acuity: KAUSHIK 3 hb Triage Assessment: 13:45 General: Appears in no apparent distress. Behavior is calm, cooperative. Pain: Pain hb currently is 3 out of 10 on a pain scale. Neuro: Level of Consciousness is awake, alert, obeys commands, Oriented to person, place, time, situation, Reports headache. Cardiovascular: Patient's skin is warm and dry. Respiratory: Respiratory effort is even, unlabored, Respiratory pattern is regular, symmetrical. GI: Reports nausea, vomiting. 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 - Infectious Disease History:: Denies. - Social history:: Smoking status: Reported history of juuling and/or vaping. Screenin:00 [facility] ED Fall Risk Assessment (Adult) History of falling in the last 3 months, hb including since admission No falls in past 3 months (0 pts) Confusion or Disorientation No (0 pts) Intoxicated or Sedated No (0 pts) Impaired Gait No (0 pts) Mobility Assist Device Used No (0 pt) Altered Elimination No (0 pt) Score/Fall Risk Level 0 - 2 = Low Risk Oriented to surroundings, Maintained a safe environment, Educated pt \T\ family on fall prevention, incl call for assistance when getting out of bed. Abuse screen: Denies threats or abuse. Denies injuries from another. Nutritional screening: No deficits noted. Tuberculosis screening: No symptoms or risk factors identified. Assessment: 14:30 General: See triage assessment. hb 16:00 Reassessment: Patient appears in no apparent distress at this time. Patient and/or hb family updated on plan of care and expected duration. Pain level reassessed. Patient is alert, oriented x 3, equal unlabored respirations, skin warm/dry/pink. Patient states symptoms have improved. 17:16 Reassessment: Patient appears in no apparent distress at this time. Patient and/or hb family updated on plan of care and expected duration. Pain level reassessed. Patient is alert, oriented x 3, equal unlabored respirations, skin warm/dry/pink. Vital Signs: 13:44 BP 105 / 72; Pulse 83; Resp 16; Temp 98.4(O); Pulse Ox 100% on R/A; Weight 56.7 kg; hb Height 5 ft. 5 in. ; Pain 3/10; 16:00 BP 118 / 74; Pulse 80; Resp 16; Pulse Ox 99% ; hb 13:44 Body Mass Index 20.80 (56.70 kg, 165.1 cm) - Percentile 38.3 % hb 13:44 Pain Scale: Adult hb ED Course: 13:30 Patient arrived in ED. mr 13:30 Cassandra Antoine, LEIDA-C is PHCP. kb 13:30 Shane Llanes MD is Attending Physician. kb 13:45 Triage completed. hb 13:46 Arm band placed on. hb 14:22 Inserted saline lock: 22 gauge in left antecubital area, using aseptic technique. Blood nj1 collected. 15:00 Patient has correct armband on for positive identification. Provided Education on: hb tests, result times. 15:00 No provider procedures requiring assistance completed. hb 16:00 Urinalysis w/ reflexes Sent. hb 16:00 Test, Urine Sent. hb 17:16 Kati Beavers, RN is Primary Nurse. hb 17:17 IV discontinued, intact, bleeding controlled, No redness/swelling at site. Pressure hb dressing applied. Administered Medications: 14:29 Drug: NS 0.9% IV 1000 ml IV at 1 bolus Per protocol; 1000 mL bolus Route: IV; Rate: 1 nj1 bolus; Site: left antecubital; 15:40 Follow up: Response: No adverse reaction; IV Status: Completed infusion; IV Intake: hb 1000ml 14:29 Drug: Ondansetron IVP 4 mg IVP once; over 2 minutes Route: IVP; Site: left antecubital; nj1 15:15 Follow up: Response: No adverse reaction hb 14:31 Drug: Famotidine IVP 20 mg IVP once; dilute with 10 mL 0.9% NaCl; give over 2 minutes nj1 Route: IVP; Site: left antecubital; 15:15 Follow up: Response: No adverse reaction hb Medication: 16:01 VIS not applicable for this client. hb Intake: 15:40 IV: 1000ml; Total: 1000ml. hb Outcome: 17:08 Discharge ordered by MD. kb 17:16 Discharged to home ambulatory, hb 17:16 Condition: stable 17:16 Discharge instructions given to patient, Instructed on discharge instructions, follow up and referral plans. medication usage, Demonstrated understanding of instructions, follow-up care, medications, Prescriptions given X 1, 17:17 Patient left the ED. hb Signatures: Cassandra Antoine, TUBE BLOWER-C TUBE BLOWER-Ckb AnsariTorri, Reg Reg mr Kati Beavers, RN RN hb Pamela Esparza RN RN nj1 Corrections: (The following items were deleted from the chart) 13:46 13:44 Chief complaint: N/V since this morning. Not tolerating fluids. hb hb
[2023-09-28 22:48] VITALS: BP 118/74; TEMP 98.4; O2SAT 99
== END 2023-09-28 17:17 | disposition home or self-care (01) ==
LOC: ER 13:28
DX: R11.2 Nausea with vomiting, unspecified (principal); L25.9 Unspecified contact dermatitis, unspecified cause; Z88.1 Allergy status to other antibiotic agents; Z91.011 Allergy to milk products; Z91.018 Allergy to other foods
CPT/HCPCS: 36415; 80053; 81001; 81025; 83690; 85025; 96361; 96374; 96375; 99284; J2405; J7030

== ENCOUNTER 2024-08-31 13:11 | Emergency (ER) | payer OTHER ==
--- OUTSIDE RECORDS SUMMARY | 2024-08-31 13:16 | XMS REPORT | Continuity of Care Document ---
Author Name Unknown Address [address] [facility] [address] [place] [address] [facility] Address [address] [facility] [address] [place] [address] Care Team Providers Care Band Top Maker Name Role Phone Madalyn Le Primary Care Physician [phone] Yumiko Nelson Attending Clinician Unavail Sejal Hernandez MD Attending Clinician + [phone] SEJAL VU Attending Clinician SEJAL Patino Attending Clinician HOLLIS Jordan Attending Clinician Unavailable Hollis Arora MD Attending Clinician [phone] MADALYN EVANGELISTA Attending Clinician Unavailable LOUISE BENSON Attending Clinician Unavailable ASAEL CHEEMA Attending Clinician Unavail Asael Noonan MD Attending Clinician Doctor Unassigned, [place] Attending Clinician U Louise Dao MD Attending Clinician [phone] JEVON MUELLER Attending Clinician Unavailable Jevon Mueller MD Attending Clinician [phone] BRANDI IRELAND Attending Clinician Unavailable SILVIA QUINN Attending Clinician Unavailable SILVIA QUINN Attending Clinician Unavailable Madalyn Le Attending Clinician [phone] Brandi Ireland MD Attending Clinician Lab, Ang - Db Attending Clinician Unavailable Roya Livingston MD Attending Clinician [phone] ROYA LIVINGSTON Attending Clinician UnavailROAY Agustin Admitting Clinician UnavailBRANDI Greco Admitting Clinician Unavailable Payers Payer Name Policy Type Policy Number Effective Date Expirati on Date Source [facility] [id number] 2022 00:00:00 Problems Condition Name Condition Details Condition Category Status Onset Date Resolution Date Last Treatment Date Treating Clinician Comments Source Menometror rhagia Menometror rhagia Problem Active 2- 00:00: 00 [facility] Female deep pain on intercours e Female Deep Pain on Intercours e Problem Active 2-19 00:00: 00 [facility] Dyspareuni a Dyspareuni a Problem Active 2023-06 2-05 00:00: 00 [facility] Dysmenorrh ea Dysmenorrh ea Problem Active 2023-06 2-05 00:00: 00 [facility] Menorrhagi a Menorrhagi a Problem Active 2023-06 2-05 00:00: 00 [facility] Encounter for surveillan ce of contracept priscilla pills Encounter for surveillan ce of contracept priscilla pills Disease Active 6-06 00:00: 00 [facility] ROSMERY positive ROSMERY positive Disease Active 3-08 00:00: 00 [facility] Anxiety and depression Anxiety and depression Disease Active 3- 00:00: 00 [facility] Lumbar back pain Lumbar back pain Disease Active 08-19 00:00: 00 [facility] Encounter to establish care Encounter to establish care Disease Active 08-19 00:00: 00 [facility] Encounter to establish care Encounter to establish care Disease Active 08-19 00:00: 00 [facility] Syncope, unspecifie d syncope type Syncope, unspecifie d syncope type Disease Active 2021-06 00:00: 00 [facility] Fatigue, unspecifie d type Fatigue, unspecifie d type Disease Active 2021-06 0 00:00: 00 [facility] No known active problems No known active problems Disease [facility] [id number] Major depressive disorder with single episode, in remission Problem [facility] [id number] CLARK (generaliz ed anxiety disorder) Problem [facility] [id number] Endometrio sis Problem [facility] [id number] Other tobacco product nicotine dependence , uncomplica noah Problem [facility] Allergies, Adverse Reactions, Alerts Allergy Name Allergy Type Status Severity Reaction(s) Onset Date Inactive Date Treating Clinician Comments Source AMOXICIL MAKSIM DRUG INGREDI Active Diarrhea 03-18 00:00: 00 [facility] Amoxicil maksim Propensi ty to adverse reaction s Active Diarrhea 03-18 00:00: 00 [facility] CITRUS AND DERIVATI VES Drug Class Active Hives 08-19 00:00: 00 [facility] Carver And Derivati ves Propensi ty to adverse reaction s Active Rash 08-19 00:00: 00 [facility] NO KNOWN ALLERGIE S Drug Class Active [facility] amoxicil maksim amoxicil maksim Active Unknown [facility] Social History Social Habit Start Date Stop Date Quantity Comments Source Gender identity [facility] Sexual orientation U [facility] Sex Assigned At [facility] Alcohol intake 2023-05-19 00:00:00 2023-05-19 00:00:00 Ex-drinker (finding) [facility] Alcoholic beverage intake 2023-05-19 00:00:00 2023-05-19 00:00:00 Ex-drinker (finding) [facility] Exposure to SARS-CoV-2 (event) 2022-10-11 00:00:00 2022-10-21 15:08:00 Not sure [facility] History of Social function 2022-08-28 00:00:00 2022-08-28 00:00:00 [facility] Tobacco use and exposure 2022-08-19 00:00:00 2022-08-19 00:00:00 Smokeless tobacco non-user [facility] Alcohol Comment 2021-12-04 00:00:00 2021-12-04 00:00:00 social [facility] History SDOH Alcohol Frequency 2020-08-22 00:00:00 2020-08-22 00:00:00 1 [facility] History SDOH Alcohol Std Drinks 2020-08-22 00:00:00 2020-08-22 00:00:00 99 [facility] History SDOH Alcohol Binge 2020-08-22 00:00:00 2020-08-22 00:00:00 1 [facility] Smoking Status Start Date Stop Date Source Current Some Day Smoker [facility] Unknown if ever smoked Commo n [facility] Never smoked tobacco [facility] Medications Ordered Medication Name Filled Medication Name Start Date Stop Date Current Medication? Ordering Clinician Indication Dosage Frequency Signature (SIG) Comments Components Source levonorgest rel-ethinyl estradiol 0.15 mg-30 mcg (91) per tablet 02-08 00:00: 00 Yes [id number] 1{tbl} Take 1 tablet by mouth in the morning. [facility] cephALEXin (KEFLEX) 500 mg capsule 2022-06 00:00: 00 Yes [id number] 500mg Take 1 capsule by mouth 4 (four) times daily. [facility] neomycin-po lymyxin-hyd rocortisone 3.5-10,000- 1 mg/mL-unit/ mL-% otic susp 12-09 00:00: 00 Yes [id number] 3[drp] Place 3 Drops in right ear 4 (four) times daily. [facility] naproxen 500 mg tablet 12-09 00:00: 00 12-20 04:59 :00 No [id number] 500mg Take 1 tablet by mouth in the morning and 1 tablet in the evening. Take with meals. Do all this for 10 days. [facility] levonorgest rel-ethinyl estradiol 0.15 mg-30 mcg (91) per tablet 11-26 00:00: 00 02-07 00:00 :00 No [id number] 1{tbl} Take 1 tablet by mouth in the morning. [facility] levonorgest rel-ethinyl estradiol 0.15 mg-30 mcg (91) per tablet 3-09 00:00: 00 11-26 00:00 :00 No [id number] 1{tbl} Take 1 tablet by mouth in the morning. [facility] meclizine 25 mg tablet 02-08 09:54: 01 02-08 00:00 :00 No 32mg Take 32 mg by mouth 3 (three) times daily as needed. [facility] levonorgest rel-ethinyl estradiol 0.15 mg-30 mcg (91) per tablet 02-08 00:00: 00 08-29 00:00 :00 No [id number] 1{tbl} Take 1 tablet by mouth in the morning. [facility] desogestreL -ethinyl estradioL (RECLIPSEN, 28,) 0.15-0.03 mg per tablet 6-14 00:00: 00 02-08 00:00 :00 No [id number] 1{tbl} Take 1 tablet by mouth daily. [facility] QUEtiapine 300 mg tablet 2-09 00:00: 00 02-08 00:00 :00 No [facility] DENTA 5000 PLUS 1.1 % Crea 2-05 00:00: 00 02-08 00:00 :00 No [facility] venlafaxine XR 75 mg 24 hr capsule 1-26 00:00: 00 02-08 00:00 :00 No [facility] Jolessa 0.15 mg-30 mcg (91) tablets,3 month dose pack Take 1 tablet every day by oral route for 90 days. Jolessa 0.15 mg-30 mcg (91) tablets,3 month dose pack Take 1 tablet every day by oral route for 90 days. No 1 Q1D Jolessa 0.15 mg-30 mcg (91) tablets,3 month dose pack Take 1 tablet every day by oral route for 90 days. [facility] Jolessa 0.15-0.03 MG Jolessa 0.15-0.03 MG No 1{table t} QD Jolessa 0.15-0.03 MG Immunizations Ordered Immunization Name Filled Immunization Name Date Status Comments Source HPV9 2022-11-26 00:00:00 Completed [facility] HPV9 2022-11-26 00:00:00 Completed [facility] HPV9 2022-11-26 00:00:00 Completed [facility] HPV9 2022-11-26 00:00:00 Completed [facility] HPV9 2022-11-26 00:00:00 Completed [facility] HPV9 2022-11-26 00:00:00 Completed [facility] HPV9 2022-11-26 00:00:00 Completed [facility] HPV9 Unknown Completed [facility] HPV9 Unknown Completed [facility] HPV9 Unknown Completed [facility] HPV9 Unknown Completed [facility] HPV9 Unknown Completed [facility] Vital Signs Vital Name Observation Time Observation Value Comments S ource Height 2024-08-11 00:00:00 66 [in_i] [facility] Body Weight 2024-08-11 00:00:00 139 [lb_av] [facility] BP Diastolic 2024-08-11 00:00:00 74 mm[Hg] [facility] BP Systolic 2024-08-11 00:00:00 111 mm[Hg] [facility] BMI (Body Mass Index) 2024-08-11 00:00:00 22.4 kg/m2 [facility] height 2024-07-08 09:15:00 65 [in_i] [facility]mo n [facility] weight 2024-07-08 09:15:00 139 [lb_av] Comm on [facility] temperature 2024-07-08 09:15:00 97.9 [degF] Com mon [facility] bmi 2024-07-08 09:15:00 23.13 kg/m2 [facility] on [facility] oximetry 2024-07-08 09:15:00 96 % Commo n [facility] blood pressure systolic 2024-07-08 09:15:00 112 mm[Hg] Common [facility] blood pressure diastolic 2024-07-08 09:15:00 60 mm[Hg] Common [facility] Body Weight 2024-05-27 00:00:00 135 [lb_av] [facility] BP Diastolic 2024-05-27 00:00:00 70 mm[Hg] [facility] Height 2024-05-27 00:00:00 66 [in_i] [facility] BP Systolic 2024-05-27 00:00:00 107 mm[Hg] [facility] BMI (Body Mass Index) 2024-05-27 00:00:00 21.8 kg/m2 [facility] Systolic blood pressure 2023-05-20 05:49:00 99 mm[Hg] [facility] Diastolic blood pressure 2023-05-20 05:49:00 59 mm[Hg] [facility] Heart rate 2023-05-20 05:49:00 79 /[facility] 2023-05-20 05:49:00 16 /min [facility] Oxygen saturation in Arterial blood by Pulse oximetry 2023-05-20 05:49:00 100 /min [facility] Body temperature 2023-05-20 02:52:00 37.11 Ysabel [facility] Body height 2023-05-20 02:52:00 167.6 cm [facility] Body weight 2023-05-20 02:52:00 57.607 kg [facility] BMI 2023-05-20 02:52:00 20.50 kg/m2 [facility] Systolic blood pressure 2023-04-11 14:52:00 101 mm[Hg] [facility] Diastolic blood pressure 2023-04-11 14:52:00 68 mm[Hg] [facility] Heart rate 2023-04-11 14:52:00 56 /min [facility] Body temperature 2023-04-11 14:52:00 36.56 Ysabel [facility] Respiratory rate 2023-04-11 14:52:00 18 /min [facility] Body height 2023-04-11 14:52:00 165.1 cm [facility] Body weight 2023-04-11 14:52:00 59.194 kg [facility] BMI 2023-04-11 14:52:00 21.72 kg/m2 [facility] Oxygen saturation in Arterial blood by Pulse oximetry 2023-04-11 14:52:00 98 /min r/a [facility] Body height 2023-03-18 14:45:00 165.1 cm [facility] Body weight 2023-03-18 14:45:00 60.357 kg [facility] BMI 2023-03-18 14:45:00 22.14 kg/m2 [facility] Systolic blood pressure 2023-01-03 20:16:00 103 mm[Hg] [facility] Diastolic blood pressure 2023-01-03 20:16:00 64 mm[Hg] [facility] Heart rate 2023-01-03 20:16:00 98 /min [facility] Body height 2023-01-03 20:10:00 165.1 cm [facility] Body weight 2023-01-03 20:10:00 58.106 kg [facility] BMI 2023-01-03 20:10:00 21.32 kg/m2 [facility] Systolic blood pressure 2022-12-10 00:43:00 123 mm[Hg] [facility] Diastolic blood pressure 2022-12-10 00:43:00 81 mm[Hg] [facility] Heart rate 2022-12-10 00:43:00 71 /min [facility] Body temperature 2022-12-10 00:43:00 37.11 Ysabel [facility] Respiratory rate 2022-12-10 00:43:00 18 /min [facility] Body height 2022-12-10 00:43:00 165.1 cm [facility] Body weight 2022-12-10 00:43:00 57.607 kg [facility] BMI 2022-12-10 00:43:00 21.13 kg/m2 [facility] Oxygen saturation in Arterial blood by Pulse oximetry 2022-12-10 00:43:00 100 /min [facility] Systolic blood pressure 2022-11-26 20:30:00 93 mm[Hg] [facility] Diastolic blood pressure 2022-11-26 20:30:00 43 mm[Hg] [facility] Heart rate 2022-11-26 20:30:00 64 /min [facility] Body temperature 2022-11-26 20:30:00 36.78 Ysabel [facility] Respiratory rate 2022-11-26 20:30:00 18 /min [facility] Body height 2022-11-26 20:30:00 163 cm [facility] Body weight 2022-11-26 20:30:00 57.879 kg [facility] BMI 2022-11-26 20:30:00 21.78 kg/m2 [facility] Systolic blood pressure 2022-10-21 20:12:00 122 mm[Hg] [facility] Diastolic blood pressure 2022-10-21 20:12:00 63 mm[Hg] [facility] Body height 2022-10-21 20:12:00 167.6 cm [facility] Body weight 2022-10-21 20:12:00 57.108 kg [facility] BMI 2022-10-21 20:12:00 20.32 kg/m2 [facility] Systolic blood pressure 2022-08-28 16:18:00 115 mm[Hg] [facility] Diastolic blood pressure 2022-08-28 16:18:00 60 mm[Hg] [facility] Heart rate 2022-08-28 16:18:00 79 /min [facility] Body temperature 2022-08-28 16:18:00 37.22 Ysabel [facility] Body height 2022-08-28 16:18:00 167.6 cm [facility] Body weight 2022-08-28 16:18:00 56.7 kg [facility] BMI 2022-08-28 16:18:00 20.18 kg/m2 [facility] Body mass index (BMI) [Percentile] Per age and sex 2022-08-28 16:18:00 31.77 % [facility] Oxygen saturation in Arterial blood by Pulse oximetry 2022-08-28 16:18:00 99 /min [facility] Systolic blood pressure 2022-08-19 15:06:00 108 mm[Hg] [facility] Diastolic blood pressure 2022-08-19 15:06:00 70 mm[Hg] [facility] Heart rate 2022-08-19 15:06:00 83 /min [facility] Body temperature 2022-08-19 15:06:00 37.17 Ysabel [facility] Body height 2022-08-19 15:06:00 167.6 cm [facility] Body weight 2022-08-19 15:06:00 58.015 kg [facility] BMI 2022-08-19 15:06:00 20.64 kg/m2 [facility] Body mass index (BMI) [Percentile] Per age and sex 2022-08-19 15:06:00 38.20 % [facility] Oxygen saturation in Arterial blood by Pulse oximetry 2022-08-19 15:06:00 98 /min [facility] Systolic blood pressure 2022-02-08 14:12:00 101 mm[Hg] [facility] Diastolic blood pressure 2022-02-08 14:12:00 67 mm[Hg] [facility] Heart rate 2022-02-08 14:12:00 81 /min [facility] Body temperature 2022-02-08 14:12:00 36.78 Ysabel [facility] Body height 2022-02-08 14:12:00 167.6 cm [facility] Body weight 2022-02-08 14:12:00 59.512 kg [facility] BMI 2022-02-08 14:12:00 21.18 kg/m2 [facility] Body mass index (BMI) [Percentile] Per age and sex 2022-02-08 14:12:00 47.21 % [place] [facility] Procedures Procedure Date / Time Performed Performing Clinician Source TROPONIN I 2023-05-20 04:01:00 Hollis Arora [facility] COMP. METABOLIC PANEL (96858) 2023-05-20 04:01:00 Hollis Arora [facility] CBC WITH DIFF 2023-05-20 04:01:00 Hollis Arora [facility] URINALYSIS 2023-05-20 04:01:00 Hollis Arora [facility] RAPID STREP SCREEN FOR GROUP A 2023-05-20 04:01:00 Hollis Arora [facility] RAPID INFLUENZA A/B 2023-05-20 04:01:00 Hollis Arora [facility] POCT TEST 2023-05-20 04:01:00 Hollis Arora [facility] CONSENT/REFUSAL FOR DIAGNOSIS AND TREATMENT 2023-05-20 02:29:15 Doctor Unassigned, [place] [facility] STATEMENT OF PATIENT FINANCIAL RESPONSIBILITY 2023-04-11 05:01:00 Doctor Unassigned, [place] [facility] CONSENT/REFUSAL FOR DIAGNOSIS AND TREATMENT 2023-01-03 20:03:41 Doctor Unassigned, [place] [facility] ASSIGNMENT OF BENEFITS 2022-12-10 01:08:19 Docto r Unassigned, [place] [facility] CONSENT/REFUSAL FOR DIAGNOSIS AND TREATMENT 2022-12-10 00:35:59 Doctor Unassigned, [place] [facility] GARDASIL 9 (HPV 9V) VACCINE 2022-11-26 20:55:19 Sejal Vu [facility] CONSENT FOR CONTRACEPTION 2022-11-26 05:01:00 Do ctor Unassigned, [place] [facility] POCT TEST 2022-08-19 16:30:00 Madalyn Evangelista [facility] CORTISOL AM 2022-03-25 15:37:00 [facility] FREE T4 2022-03-25 15:37:00 [facility] THYROID STIMULATING HORMONE 2022-03-25 15:37:00 [facility] COMP. METABOLIC PANEL ([id number]) 2022-03-25 15:37:00 [facility] CBC WITH DIFF 2022-03-25 15:37:00 Silvia Quinn [facility] GLYCOSYLATED HEMOGLOBIN (A1C) 2022-03-25 15:37:00 Silvia Quinn [facility] FREE T3 2022-03-25 15:37:00 Silvia Quinn [facility] US PELVIS COMPLETE WITH TRANSVAGINAL 2022-02-20 19:31:10 Brandi Ireland [facility] Encounters Start Date/Time End Date/Time Encounter Type Admission Type Attending [facility] Facility Care Department Encounter ID Source 2024-07-08 09:22:00 Outpatient Yumiko [facility] [id number] [facility] 2024-08-11 00:00:00 2024-08-11 00:00:00 Cindy Appiah MD: [address], [address], [place] [address] , Ph. 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 [facility] - GC_GCBZW_La ming Antoine* [id number] [facility] 2024-05-07 00:00:00 2024-05-13 15:53:39 Refill Baeza-Katie s, [facility] [id number] 350.1.13.10 4.2.7.2.686 [id number] [facility] 2024-02-08 00:00:00 2024-02-09 11:44:49 Refill Baeza-Katie s, [facility] [id number] 350.1.13.10 4.2.7.2.686 [id number] [facility] 2023-05-19 20:55:00 2023-05-19 23:51:00 Emergency X HOLLIS ARORA [facility] ERT [id number] [facility] 2023-05-19 20:55:00 2023-05-19 23:51:[address] [facility] [id number] 350.1.13.10 4.2.7.2.686 [id number] [facility] 2023-04-23 13:30:00 2023-04-23 13:30:00 Outpatient R MADALYN EVANGELISTA [facility] [id number] [facility] 2023-04-11 12:15:00 2023-04-11 12:15:00 Outpatient R [facility] [id number] [facility] 2023-04-11 10:00:00 2023-04-11 11:23:53 Outpatient R ASAEL CHEEMA [facility] [id number] [facility] 2023-04-11 10:00:00 2023-04-11 11:23:53 Office Visit Asael Cheema [facility] [id number] 350.1.13.10 4.2.7.2.686 [id number] [facility] 2023-04-11 00:00:00 2023-04-11 00:00:00 Orders Only Doctor Unassigned, [place] [facility] 1.2.840.114 350.1.13.10 4.2.7.2.686 [id number] [facility] 2023-03-18 10:00:00 2023-03-18 10:15:00 Office Visit Louise Benson [facility] 1.2.840.114 350.1.13.10 4.2.7.2.686 [id number] [facility] 2023-03-18 10:00:00 2023-03-18 10:00:00 Outpatient R LOUISE BENSON [facility] [id number] [facility] 2023-01-03 15:45:00 2023-01-03 16:00:00 [facility] 1.2.840.114 350.1.13.10 4.2.7.2.686 [id number] [facility] 2023-01-03 15:45:00 2023-01-03 15:45:00 [facility] [id number] 2023-01-03 00:00:00 2023-01-03 00:00:00 Orders Only Doctor Unassigned, [place] [facility] 1.2.840.114 350.1.13.10 4.2.7.2.686 [id number] [facility] 2022-12-09 19:46:00 2022-12-09 20:22:00 Emergency X JEVON MUELLER [facility] ERT [id number] [facility] 2022-12-09 19:46:00 2022-12-09 20:22:[address] [facility] 1.2.840.114 350.1.13.10 4.2.7.2.686 [id number] [facility] 2022-12-09 00:00:00 2022-12-09 00:00:00 Orders Only Doctor Unassigned, [place] [facility] 1.2840.114 350.1.13.10 4.2.7.2.686 [id number] [facility] 2022-11-26 15:30:00 2022-11-26 15:58:32 Outpatient R ROCYK Leal, SEJAL [facility] [id number] [facility] 2022-11-26 15:30:00 2022-11-26 15:58:32 [facility] 1.2.840.114 350.1.13.10 4.2.7.2.686 [id number] [facility] 2022-11-26 00:00:00 2022-11-26 00:00:00 Orders Only Doctor Unassigned, [place] [facility] 1.2840.114 350.1.13.10 4.2.7.2.686 [id number] [facility] 2022-10-21 15:30:00 2022-10-21 15:48:47 Outpatient R SILVIA QUINN YU [facility] [id number] [facility] 2022-10-21 15:30:00 2022-10-21 15:48:47 Office Visit Silvia Quinn [facility] 1.840.114 350.1.13.10 4.2.7.2.686 [id number] [facility] 2022-09-01 00:00:00 2022-09-01 00:00:00 Patient Secure Msg Doctor Unassigned, [place] [facility] 1.84.114 350.1.13.10 4.2.7.2.686 [id number] [facility] 2022-08-28 10:30:00 2022-08-28 10:53:44 Outpatient R MADALYN EVANGELISTA [facility] [id number] [facility] 2022-08-28 10:30:00 2022-08-28 10:53:44 Office Visit Madalyn Evangelista [facility] LIAN?[facility] 1.840.114 350.1.13.10 4.2.7.2.686 [id number] [facility] 2022-08-28 00:00:00 2022-08-28 00:00:00 [facility] 1.840.114 350.1.13.10 4.2.7.2.686 [id number] [facility] 2022-08-19 10:00:00 2022-08-19 10:38:59 Outpatient R MADALYN EVANGELISTA [facility] [id number] [facility] 2022-08-19 10:00:00 2022-08-19 10:15:00 Flow Nurse Visit Lab, [facility] 1.840.114 350.1.13.10 4.2.7.2.686 [id number] [facility] 2022-08-19 09:00:00 2022-08-19 09:30:00 Office Visit Madalyn [facility] 1.84.114 350.1.13.10 4.2.7.2.686 [id number] [facility] 2022-06-26 11:30:00 2022-06-26 11:30:00 Outpatient R SILVIA QUINN KAI, [facility] [id number] [facility] 2022-04-23 00:00:00 2022-04-23 00:00:00 Telephone Kai, [facility] 1..114 350.1.13.10 4.2.7.2.686 [id number] [facility] 2022-04-12 16:40:00 2022-04-12 23:59:00 Hospital Encounter Roya Livingston [facility] 1.84.114 350.1.13.10 4.2.7.2.686 [id number] [facility] 2022-04-12 00:00:00 2022-04-12 23:59:00 Outpatient ROYA HENDERSON [facility] ACO [id number] [facility] 2022-04-11 14:13:00 2022-04-11 23:59:00 Hospital Encounter Roya Livingston [facility] 1.840.114 350.1.13.10 4.2.7.2.686 [id number] [facility] 2022-04-11 00:00:00 2022-04-11 23:59:00 Outpatient Darien [facility] [id number] [facility] 2022-04-08 09:45:00 2022-04-08 11:28:30 Flow Nurse Visit Lab, Darien Quinn [facility] 1.84.114 350.1.13.10 4.2.7.2.686 [id number] [facility] 2022-04-08 09:45:00 2022-04-08 09:45:00 Outpatient R SILVIA QUINN [facility] [id number] [facility] 2022-03-27 00:00:00 2022-03-27 00:00:00 Patient Secure Msg Quinn [facility] LIAN?[facility] 1.20.114 350.1.13.10 4.2.7.2.686 [id number] [facility] 2022-03-25 08:15:00 2022-03-25 11:12:21 Flow Nurse Visit Lab, Darien Stephens Silvia Quinn [facility] LIAN?[facility] 1..114 350.1.13.10 4.2.7.2.686 [id number] [facility] 2022-03-25 09:30:00 2022-03-25 10:11:54 Outpatient R SILVIA QUINN, [facility] [id number] [facility] 2022-03-25 09:30:00 2022-03-25 10:11:54 Office Visit Silvia Quinn [facility] LIAN?[facility] 1..114 350.1.13.10 4.2.7.2.686 [id number] [facility] 2022-03-25 00:00:00 2022-03-25 00:00:00 Telephone Silvia Quinn [facility] LIAN?[facility] 1.114 350.1.13.10 4.2.7.2.686 [id number] [facility] 2022-02-26 00:00:00 2022-02-26 00:00:00 Telephone Brandi Ireland [facility] 1..114 350.1.13.10 4.2.7.2.686 [id number] 134 [id number] [facility] 2022-02-20 13:52:15 2022-02-20 23:59:00 Outpatient R ADBRANDI NELSON [facility] [id number] [facility] 2022-02-20 13:52:15 2022-02-20 23:59:00 Hospital Encounter AdBrandi nelson [facility] 1.2.840.114 350.1.13.10 4.2.7.2.686 [id number] [facility] 2022-02-08 09:15:00 2022-02-08 09:58:12 Office Visit AdBrandi nelson [facility] 1.2.840.114 350.1.13.10 4.2.7.2.686 [id number] [facility] 2022-02-08 09:15:00 2022-02-08 09:58:12 Outpatient R ADBRANDI NELSON [facility] [id number] [facility] 2022-02-08 09:15:00 2022-02-08 09:15:00 Outpatient R ADBRANDI NELSON [facility] [id number] [facility] 2022-02-07 00:00:00 2022-02-07 00:00:00 Telephone AdBrandi nelson [facility] 1.2.840.114 350.1.13.10 4.2.7.2.686 [id number] [facility] 2021-12-04 15:30:00 2021-12-04 16:53:18 Outpatient R ADBRANDI NELSON [facility] [id number] [facility] 2021-12-04 15:30:00 2021-12-04 16:53:18 Office Visit AdBrandi nelson [facility] 1.2.840.114 350.1.13.10 4.2.7.2.686 [id number] [facility] 2021-12-04 00:00:00 2021-12-04 00:00:00 Orders Only Doctor Unassigned, [place] [facility] 1.2840.114 350.1.13.10 4.2.7.2.686 [id number] [facility] 2021-11-16 00:00:00 2021-11-16 00:00:00 Refill Admary anne Brandi Mcallister [facility] 1.2840.114 350.1.13.10 4.2.7.2.686 [id number] 134 [id number] [facility] 2021-11-07 00:00:00 2021-11-07 00:00:00 Orders Only Doctor Unassigned, [place] [facility] 1.20.114 350.1.13.10 4.2.7.2.686 [id number] [facility] 2021-02-27 13:54:27 2021-02-27 15:02:19 Office Visit Shu Brandi Ary [facility] 1.2840.114 350.1.13.10 4.2.7.2.686 [id number] [facility] 2021-02-27 14:00:00 2021-02-27 14:00:00 Outpatient R BRANDI IRELAND [facility] [id number] [facility] 2021-02-27 00:00:00 2021-02-27 00:00:00 Letter (Out) Brandi Ireland [facility] 1.2840.114 350.1.13.10 4.2.7.2.686 [id number] [facility] 2021-02-27 00:00:00 2021-02-27 00:00:00 Letter (Out) Adum, Brandi Mcallister [facility] 1.2.840.114 350.1.13.10 4.2.7.2.686 [id number] [facility] 2020-08-23 00:00:00 2020-08-23 00:00:00 Case Management Adum, Brandi Mcallister OKLEYDA [facility] 1.2.840.114 350.1.13.10 4.2.7.2.686 [id number] [facility] 2020-08-22 15:10:24 2020-08-22 16:42:12 Office Visit AdBrandi nelson [facility] 1.2.840.114 350.1.13.10 4.2.7.2.686 [id number] [facility] 2020-08-22 15:00:00 2020-08-22 15:00:00 Outpatient R ADBRANDI NELSON [facility] [id number] [facility] 2020-08-22 00:00:00 2020-08-22 00:00:00 Orders Only Doctor Unassigned, [place] [facility] 1.2.840.114 350.1.13.10 4.2.7.2.686 [id number] [facility] Results Test Description Test Time Test Comments Results Result Co m[facility]83827[facility]-20 04:35:54* Test Item Value Reference Range Interpretation Comme nts NA (test code = 6751780912) 139 mmol/L 135-145 K (test code = 3929017798) 4.3 mmol/L 3.5-5.0 CL (test code = 3207907809) 106 mmol/L 98-108 CO2 TOTAL (test code = 8555061483) 28 mmol/L 23-31 AGAP (test code = 8665430325) 5 2-16 BUN (test code = 3490754706) 11 mg/dL 7-23 GLUCOSE (test code = 4250523537) 91 mg/dL 70-110 CREATININE (test code = 0936290304) 0.71 mg/dL 0.50-1.04 TOTAL BILI (test code = 7455984504) 0.2 mg/dL 0.1-1.1 CALCIUM (test code = 7662092228) 9.5 mg/dL 8.6-10.6 T PROTEIN (test code = 1451310010) 7.8 g/dL 6.3-8.2 ALBUMIN (test code = 7780870298) 4.2 g/dL 3.5-5.0 ALK PHOS (test code = 6577009696) 54 U/L 34-122 ALTv (test code = 1742-6) 12 U/L 5-35 AST(SGOT) (test code = 1935242841) 20 U/L 13-40 eGFR (test code = 89435-3) 125.8 mL/min/1.73m2 CKD-EPI eGFR (20 21). Assuming creatinine has been stable day-to-day for at least three months, the eGFR indicates Category G1 (>= 90 mL/min/1.73 m2) [facility] WITH [id number] 04:26:58* Test Item Value Reference Range Interpretation Comme nts WBC (test code = 6690-2) 6.44 See_Comment [Automated XATA] The system which generated this result transmitted reference range: 4.30 - 11.10 10*3/?L. The reference range was not used to interpret this result as normal/abnormal. RBC (test code = 789-8) 4.58 See_Comment [Automated XATA] The system which generated this result transmitted [...] 32.3 g/dL 31.6-35.1 RDW-SD (test code = 60973-2) 41.4 fL 39.0-49.9 RDW-CV (test code = 788-0) 12.5 % 12.0-15.5 PLT (test code = 777-3) 244 See_Comment [Automated messa ge] The system which generated this result transmitted reference range: 166 - 358 10*3/?L. The reference range was not used to interpret this result as normal/abnormal. MPV (test code = 18875-6) 11.6 fL 9.5-12.9 NRBC/100 WBC (test code = 3615717782) 0.0 See_Comment [Automated me ssage] The system which generated this result transmitted reference range: 0.0 - 10.0 /100 WBCs. The reference range was not used to interpret this result as normal/abnormal. NRBC x10^3 (test code = 3508627820) See_Comment [Automated me ssage] The system which generated this result transmitted reference range: 10*3/?L. The reference range was not used to interpret this result as normal/abnormal. GRAN MAT (NEUT) % (test code = 770-8) 46.1 % IMM GRAN % (test code = 6534291610) 0.20 % LYMPH % (test code = 736-9) 43.3 % MONO % (test code = 5905-5) 8.7 % EOS % (test code = 713-8) 1.4 % BASO % (test code = 706-2) 0.3 % GRAN MAT x10^3(ANC) (test code = 4413220927) 2.97 10*3/uL 1.88-7.09 IMM GRAN x10^3 (test code = 3218903221) 0.00-0.06 LYMPH x10^3 (test code = 731-0) 2.79 10*3/uL 1.32-3.29 MONO x10^3 (test code = 742-7) 0.56 10*3/uL 0.33-0.92 EOS x10^3 (test code = 711-2) 0.09 10*3/uL 0.03-0.39 BASO x10^3 (test code = 704-7) 0.01-0.07 [facility] [id number] 04:01:00* Test Item Value Reference Range Interpretation Comme nts POCT PREG (test code = 1605) Negative On board controls acceptable with C Line (test code = 3574) Yes Lab Interpretation (test cod e = 56553-6) Normal [facility] [id number] 16:30:00* Test Item Value Reference Range Interpretation Comme nts POCT PREG (test code = 1605) Negative On board controls acceptable with C Line (test code = 3574) Yes POCT PREG LOT # (test code = 3575) POCT PREG TEST DATE ( test code = 3576) Lab Interpretation (test cod e = 37943-9) Normal [facility] [id number] 16:30:00* Test Item Value Reference Range Interpretation Comme nts POCT PREG (test code = 1605) Negative On board controls acceptable with C Line (test code = 3574) Yes POCT PREG LOT # (test code = 3575) POCT PREG TEST DATE ( test code = 3576) Lab Interpretation (test cod e = 02553-3) Normal [facility] [id number] 20:44:10* Test Item Value Reference Range Interpretation Comme nts JUSTIN AM (test code = 0094234487) 30.5 ug/dL 4.5-23 H BENOIT (test code = BENOIT) Biotin has been reported to cause a positive bias, interpret results relative to patient's use of biotin. Lab Interpretation (test code = 80832-8) Abnormal [facility]IM[facility] [id number] 19:51:18 * Test Item Value Reference Range Interpretation Comme nts TSH (test code = 7003444455) See_Comment [Automated messa ge] The system which generated this result transmitted reference range: 0.45 - 4.70 mIU/L. The reference range was not used to interpret this result as normal/abnormal. Lab Interpretation (test code = 06568-3) [facility] [id number] 19:37:52* Test Item Value Reference Range Interpretation Comme nts FREE T4 (test code = 2151723646) See_Comment [Automated ITNa ge] The system which generated this result transmitted reference range: 0.78 - 2.20 ng/dL:. The reference range was not used to interpret this result as normal/abnormal. Lab Interpretation (test code = 05754-6) Normal [facility] [id number] 19:37:32* Test Item Value Reference Range Interpretation Comme nts FREE T3 (test code = 4134520518) 3.75 pg/mL 2.77-5.27 Lab Interpretation (test cod e = 00118-4) Normal [facility] Center[facility]OSYLATED HEMOGLOBIN (A1C)2022-03-25 19:36:51* Test Item Value Reference Range Interpretation Comme nts HGB A1C (test code = 4548-4) 4.6 % 4-5.7 BENOIT (test code = BENOIT) Reference RangesNormal: <5.7%Prediabetes: 5.7 - 6.4%Diabetes: > 6.5% Lab Interpretation (test code = 77580-1) Normal [facility] PAN[facility] (02811)2022-03-25 19:17:04* Test Item Value Reference Range Interpretation Comme nts NA (test code = 1303659395) 140 mmol/L 135-145 K (test code = 8941876298) 4.2 mmol/L 3.5-5 CL (test code = 1067376796) 106 mmol/L 98-108 CO2 TOTAL (test code = 8154943580) 25 mmol/L 23-31 AGAP (test code = 5675088578) 2-16 BUN (test code = 9629452267) 7 mg/dL 7-23 GLUCOSE (test code = 6502064890) 80 mg/dL 70-110 CREATININE (test code = 6023130207) 0.75 mg/dL 0.5-1.04 TOTAL BILI (test code = 3031475848) 0.5 mg/dL 0.1-1.1 CALCIUM (test code = 0816082923) 9.8 mg/dL 8.6-10.6 T PROTEIN (test code = 6307280766) 7.0 g/dL 6.3-8.2 ALBUMIN (test code = 3024289040) 4.0 g/dL 3.5-5 ALK PHOS (test code = 9752044356) 61 U/L 34-122 ALTv (test code = 1742-6) 11 U/L 5-35 AST(SGOT) (test code = 7678778707) 16 U/L 13-40 eGFR (test code = 8915315811) mL/min/1.73m2 BENOIT (test code = BENOIT) Association [...] or urine or abnormalities in imaging tests). [facility] WITH [id number] 18:49:41* Test Item Value Reference Range Interpretation Comme nts WBC (test code = 6690-2) See_Comment [Automated XATA] The system which generated this result transmitted reference range: 4.50 - 13.50 10*3/?L. The reference range was not used to interpret this result as normal/abnormal. RBC (test code = 789-8) See_Comment [Automated messa ge] The system which [...] g/dL 32-36 L RDW-SD (test code = 16160-2) 41.5 fL 38.5-49 RDW-CV (test code = 788-0) 12.5 % 11.5-14 PLT (test code = 777-3) See_Comment [Automated messa ge] The system which generated this result transmitted reference range: 135 - 361 10*3/?L. The reference range was not used to interpret this result as normal/abnormal. MPV (test code = 10523-4) 12.7 fL 9.4-13.3 NRBC/100 WBC (test code = 7720276788) See_Comment [Automated [employer] ssage] The system which generated this result transmitted reference range: 0.0 - 10.0 /100 WBCs. The reference range was not used to interpret this result as normal/abnormal. NRBC x10^3 (test code = 4360432109) See_Comment [Automated messa ge] The system which generated this result transmitted reference range: 10*3/?L. The reference range was not used to interpret this result as normal/abnormal. GRAN MAT (NEUT) % (test code = 770-8) 60.7 % IMM GRAN % (test code = 0592738764) 0.20 % LYMPH % (test code = 736-9) 32.0 % MONO % (test code = 5905-5) 6.5 % EOS % (test code = 713-8) 0.2 % BASO % (test code = 706-2) 0.4 % GRAN MAT x10^3(ANC) (test code = 3212808255) 3.29 10*3/uL 1.5-10.3 IMM GRAN x10^3 (test code = 7180364973) 0-0.06 LYMPH x10^3 (test code = 731-0) 1.73 10*3/uL 0.7-7.4 MONO x10^3 (test code = 742-7) 0.35 10*3/uL 0-0.5 EOS x10^3 (test code = 711-2) 0-0.4 BASO x10^3 (test code = 704-7) 0-0.1 Lab Interpretation (test code = 46686-8) Abnormal [facility] Notes Date/Time Note Provider Source 2024-05-13 15:49:39 Name and verified, pt states she is no longer employed and can not come in due her financial status. Pt states she has enough bc to last until 05/29. Pt was informed she could call [facility] for financial help at [phone]. Pt verbalized understanding. Macy Barton RN 05/13/2024 3:52 PM L CUTTER Macy Barton RN [facility] 2024-05-07 08:32:25 Attempted to reach pt, no answer, left a vm Pt needs a WWE appointment for more control refills, pt has cancelled twice. Macy Barton RN 05/07/2024 8:34 AM L CUTTER [facility] 2024-02-09 11:40:44 Spoke with patient. Patient scheduled for yearly exam. Patient does not have insurance at this time. Patient provided with information for [facility] regional clinic as well as W insurance. [employer] message sent with how to apply to [employer] [place] [employer]. Patient scheduled for WWE with Dr Vu at this time. Patient advised I can send 1 refill but she will need to be seen in office for further refills. Patient verbalized understanding. Kwasi Chapin RN 02/09/2024 11:42 AM Kwasi Chapin RN [facility]"
--- NOTE | 2024-08-31 13:50 | ER ---
Nurse's Notes [facility] Name: Parvin Kumar Age: 19 yrs Sex: Female : 2005 Arrival Date: 08/31/2024 Time: 13:11 Bed DX4 Private MD: Diagnosis: Jaw pain-and toothache, left lower Presentation: 08/31 13:29 Chief complaint: Patient states: she has been having facial swelling and left jaw/neck ap3 pain that has been going on for approx 3 days now. patient also reports that she started vomiting today and having chills. patient currently rates her pain as a 7/10. Coronavirus screen: At this time, the client does not indicate any symptoms associated with coronavirus-19. Ebola Screen: No symptoms or risks identified at this time. Initial Sepsis Screen: Does the patient meet any 2 criteria? No. Patient's initial sepsis screen is negative. Initial Sepsis Screen: Does the patient meet any 2 criteria? Does the patient have a suspected source of infection? No. Patient's initial sepsis screen is negative. Risk Assessment: Do you want to hurt yourself or someone else? Patient reports no desire to harm self or others. Onset of symptoms was August 28, 2024. 13:29 Method Of Arrival: Ambulatory ap3 13:29 Acuity: KAUSHIK 3 ap3 Triage Assessment: 13:33 General: Appears uncomfortable, Behavior is calm, cooperative, appropriate for age. ap3 Pain: Complains of pain in left jaw and neck Pain currently is 7 out of 10 on a pain scale. EENT: Reports pain. EENT: Poor dentition noted. Neuro: Level of Consciousness is awake, alert, obeys commands, Oriented to person, place, time, situation. Cardiovascular: Patient's skin is warm and dry. Respiratory: Airway is patent Respiratory effort is even, unlabored, Respiratory pattern is regular, symmetrical. 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 - Infectious Disease History:: Denies. - Social history:: Smoking status: unknown. Screenin:34 [facility] ED Fall Risk Assessment (Adult) History of falling in the last 3 months, ap3 including since admission No falls in past 3 months (0 pts) Confusion or Disorientation No (0 pts) Intoxicated or Sedated No (0 pts) Impaired Gait No (0 pts) Mobility Assist Device Used No (0 pt) Altered Elimination No (0 pt) Score/Fall Risk Level 0 - 2 = Low Risk Oriented to surroundings, Maintained a safe environment, Educated pt \T\ family on fall prevention, incl call for assistance when getting out of bed, Assessed \T\ reinforced patient's understanding of fall precautions, Hourly rounding (assess needs \T\ fall precautionary measures) done, Used ambulatory aids as needed (educated on \T\ assisted with). Abuse screen: Denies threats or abuse. Nutritional screening: No deficits noted. Tuberculosis screening: No symptoms or risk factors identified. Vital Signs: 13:29 BP 102 / 76; Pulse 61; Resp 19; Temp 98.1; Pulse Ox 100% ; Weight 63.05 kg; Pain 7/10; ap3 13:29 Pain Scale: Adult ap3 ED Course: 13:13 Patient arrived in ED. im 13:13 Cassandra Antoine FNP-C is PHCP. kb 13:13 Geovany Valentine MD is Attending Physician. kb 13:32 Triage completed. ap3 13:34 Arm band placed on right wrist. ap3 14:41 Patient has correct armband on for positive identification. Provided Education on: ap3 discharge instructions. 14:41 No provider procedures requiring assistance completed. Patient did not have IV access ap3 during this emergency room visit. Administered Medications: 14:37 Drug: Ondansetron Oral Disintegrating Tablet Oral Disintegrating Tablet 4 mg PO once ap3 Route: PO; 14:42 Follow up: Response: No adverse reaction ap3 14:37 Drug: Amoxicillin-Clavulanate PO 875 mg PO once Route: PO; ap3 14:42 Follow up: Response: No adverse reaction ap3 14:37 Drug: HYDROcodone-acetaminophen PO 5 mg-325 mg 1 tabs PO once Route: PO; ap3 14:42 Follow up: Response: No adverse reaction; Medication administered at discharge. ap3 Medication: 14:41 VIS not applicable for this client. ap3 Outcome: 13:50 Discharge ordered by MD. arnold 14:41 Discharged to home ambulatory, with family, ap3 14:41 Condition: good 14:41 Discharge instructions given to patient, Instructed on discharge instructions, follow up and referral plans. medication usage, Demonstrated understanding of instructions, follow-up care, medications, Prescriptions given X 3, 14:42 Patient left the ED. ap3 Signatures: Cassandra Antoine, Marianna Benitez RN RN ap3 Gabrielle Arias
--- NOTE | 2024-08-31 13:50 | EDPHYS ---
Physician Documentation [facility] Name: Parvin Kumar Age: 19 yrs Sex: Female : 2005 Arrival Date: 08/31/2024 Time: 13:11 Bed DX4 Private MD: ED Physician Geovany Valentine HPI: 08/31 13:49 This 19 yrs old Female presents to ER via Ambulatory with complaints of Toothache, kb Facial Swelling. 13:49 Pt is a 19 year old female who presents for left lower jaw pain that started 4 days kb ago. Reports chills. Started vomiting today. Denies known fever. States pain is in her teeth as well. . 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 - Infectious Disease History:: Denies. - Social history:: Smoking status: unknown. ROS: 13:46 Constitutional: As per HPI kb Exam: 13:46 Constitutional: This is a well developed, well nourished patient who is awake, alert, kb and in no acute distress. ENT: Moist Mucous membranes Cardiovascular: Regular rate Respiratory: Respirations even and unlabored. No increased work of breathing. Talking in full sentences Abdomen/GI: Soft, non-tender. No distention Skin: Warm, dry with normal turgor. Normal color. MS/ Extremity: Pulses equal, no cyanosis. Neurovascular intact. Full, normal range of motion. Neuro: Awake and alert, GCS 15, oriented to person, place, time, and situation. 13:47 Head/face: Noted is no obvious of injury or deformity except tenderness, that is kb moderate, of the left jaw, 13:47 ENT: TM's: fluid levels, on the left, Dental exam: pain, that is moderate, specifically in the lower left second molar (#18), lower left first molar (#19) and lower left second bicuspid (#20), Vital Signs: 13:29 BP 102 / 76; Pulse 61; Resp 19; Temp 98.1; Pulse Ox 100% ; Weight 63.05 kg; Pain 7/10; ap3 13:29 Pain Scale: Adult ap3 MDM: 13:14 Medical Screening Exam initiated kb 13:47 Data reviewed: vital signs, nurses notes. kb 13:48 Differential diagnosis: dental caries, gingivitis, dental abscess, pericoronitis. kb Historians other than the Patient: Parent: mother. Counseling: I had a detailed discussion with the patient and/or guardian regarding the historical points, exam findings, and any diagnostic results supporting the discharge/admit diagnosis, the need for outpatient follow up, a dentist, to return to the emergency department if symptoms worsen or persist or if there are any questions or concerns that arise at home. Administered Medications: 14:37 Drug: Ondansetron Oral Disintegrating Tablet Oral Disintegrating Tablet 4 mg PO once ap3 Route: PO; 14:42 Follow up: Response: No adverse reaction ap3 14:37 Drug: Amoxicillin-Clavulanate PO 875 mg PO once Route: PO; ap3 14:42 Follow up: Response: No adverse reaction ap3 14:37 Drug: HYDROcodone-acetaminophen PO 5 mg-325 mg 1 tabs PO once Route: PO; ap3 14:42 Follow up: Response: No adverse reaction; Medication administered at discharge. ap3 Disposition: 16:28 Co-signature as Attending Physician, Geovany Valentine MD I reviewed the patient's care rn provided by the Advanced Practice Provider and agree with the diagnosis and treatment plan. Disposition Summary: 08/31/24 13:50 Discharge Ordered Notes: Location: Home kb Condition: Stable kb Diagnosis - Jaw pain - and toothache, left lower(08/31/24 13:50) kb Followup: kb - With: Emergency Department - When: As needed - Reason: Worsening of condition Followup: kb - With: Private Physician - When: 2 - 3 days - Reason: Recheck today's complaints, Continuance of care, Re-evaluation by your physician Discharge Instructions: - Discharge Summary Sheet kb - Dental Pain, [id number] kb - Dental Abscess, [id number] kb Forms: - Work release form kb - Medication Reconciliation Form kb - Antibiotic Education kb - Prescription Opioid Use kb - Patient Portal Instructions kb - Leadership Thank You Letter kb Prescriptions: - Augmentin 875-125 mg Oral Tablet - take 1 tablet ORAL route every 12 hours for 10 days; 20 tablet; Refills: 0, kb Product Selection Permitted - Zofran 4 mg Oral tablet - take 1 tablet ORAL route every 6 hours As needed; 12 tablet; Refills: 0, kb Product Selection Permitted - Diclofenac Sodium 75 mg Oral tablet, delayed release (enteric coated) - take 1 tablet ORAL route 2 times per day As needed; 30 tablet; Refills: 0, kb Product Selection Permitted Signatures: Cassandra Antoine FNP-C [employer]-CkGeovany Schreiber MD MD rn Prokisch, Amanda, RN RN ap3 Corrections: (The following items were deleted from the chart) 13:48 13:46 Constitutional: This is a well developed, well nourished patient who is awake, kb alert, and in no acute distress. Head/Face: Normocephalic, atraumatic. ENT: Moist Mucous membranes Cardiovascular: Regular rate Abdomen/GI: Soft, non-tender. No distention Skin: Warm, dry with normal turgor. Normal color. MS/ Extremity: Pulses equal, no cyanosis. Neurovascular intact. Full, normal range of motion. Neuro: Awake and alert, GCS 15, oriented to person, place, time, and situation. kb 13:48 13:46 Respiratory: the patient does not display signs of respiratory distress, kb Respirations: normal, Breath sounds: decreased breath sounds, that are mild, are located in both bases, wheezing: expiratory that is mild, kb 13:50 13:50 Jaw pain kb kb
[2024-08-31] MEDS ORDERED: AMOX/K CLAV 875 MG TAB ONE (14:27)
[2024-08-31] MEDS ORDERED: HYDROCODONE/APAP 5/325 MG TAB ONE (14:28)
[2024-08-31] MEDS ORDERED: ONDANSETRON 4 MG (ODT) TAB ONE (14:28)
[2024-08-31 14:48] VITALS: BP 102/76; TEMP 98.1; O2SAT 100
== END 2024-08-31 14:42 | disposition home or self-care (01) ==
LOC: ER 13:11
DX: R68.84 Jaw pain (principal); K08.89 Other specified disorders of teeth and supporting structures
CPT/HCPCS: 99283; Q0162